=== PATIENT | female | born 1980 | race Caucasian/White ===

== ENCOUNTER → 2018-01-29 10:24 | Outpatient (POV) | payer OTHER, SELFPAY | PROVIDERS: Family Provider Internal Medicine; PCP Internal Medicine; Visit Provider Internal Medicine | DX: Z00.00 Encounter for general adult medical examination without abnormal findings (principal) ==

== ENCOUNTER → 2018-02-21 08:57 | Outpatient (CLI) | payer OTHER, SELFPAY ==
--- NOTE | 2018-02-21 09:26 | XR_ITS ---
XR chest 2V HISTORY: ITS.REASON: WHEEZING, DYSPNEA ON EXERTION ORDERING PHYSICIAN: Neville Tinsley MD PATIENT AGE: 37 years COMPARISON: 04/28/2016 FINDINGS: The cardiomediastinal silhouette and pulmonary vascularity are within normal limits. The lungs are clear without infiltrates, suspicious nodules, or pleural effusions. No acute bony abnormalities. IMPRESSION: Negative chest, no acute finding
[2018-02-21 10:30] VITALS: PULSE 95
[2018-02-21 10:45] VITALS: BP 144/105; PULSE 107; RESP 14; O2SAT 96
[2018-02-21 11:05] VITALS: BP 135/96; PULSE 103; RESP 14; O2SAT 98
[2018-02-21 11:28] LABS: Basophils # 0.1 K/mm3 (0-0.2); Basophils % 0.4 % (0.1-2.0); Eosinophils # 0.2 K/mm3 (0.0-0.4); Eosinophils % 1.1 % (0.1-12.0); Hematocrit 54.8 % (37.0-47.0); Hemoglobin 17.4 g/dL (12.2-16.2); Lymphocytes # 3.6 K/mm3 (0.7-4.5); Lymphocytes % 24.6 K/mm3 (10-50); Mean Corpuscular HGB Conc 31.7 g/dL (31.8-35.4); Mean Corpuscular Hemoglobin 27.8 pg (27.0-31.2); Mean Corpuscular Volume 87.5 fl (81-99); Mean Platelet Volume 7.4 fl (7.4-10.4); Monocytes # 1.2 K/mm3 (0.1-1.0); Monocytes % 8.3 % (1.7-9.3); Neutrophils # 9.4 K/mm3 (1.8-7.8); Neutrophils % 65.5 % (37.0-80.0); Platelet Count 297 K/mm3 (142-424); Red Blood Count 6.27 M/mm3 (4.20-5.40); Red Cell Distribution Width 12.8 % (11.5-17.5); White Blood Count 14.4 K/mm3 (4.8-10.8)
[2018-02-21 12:37] LABS: Alanine Aminotransferase 71 U/L (12-78); Albumin Level 3.9 gm/dL (3.4-5.0); Alkaline Phosphatase 103 U/L (46-116); Anion Gap 15.4 mEq/L (5-15); Aspartate Amino Transferase 37 U/L (15-37); Bilirubin,Total 0.8 mg/dL (0.2-1.0); Blood Urea Nitrogen 11 mg/dL (7-18); Calcium 9.5 mg/dL (8.5-10.1); Carbon Dioxide 32 mmol/L (21.0-32.0); Chloride 97 mmol/L (98-107); Creatinine,Serum 0.74 mg/dL (0.55-1.02); Estimated Glomerular Filt Rate 87 ml/min (>60); GFR (African American) 106 ML/MIN (>60); Globulin 4.1 gm/dl (1.3-3.2); Glucose 81 mg/dL (74-106); Potassium 3.4 mmoL/L (3.5-5.1); Sodium 141 mmol/L (136-145)
[2018-02-24 18:29] LABS: Immunoglobulin E, Total 38 IU/mL (0-100)
== END ==
PROVIDERS: Family Provider Internal Medicine; PCP Internal Medicine; Visit Provider Internal Medicine
DX: R06.09 Other forms of dyspnea (principal); G47.19 Other hypersomnia; R06.2 Wheezing
CPT/HCPCS: 36415; 71046; 80053; 82785; 85025; 94060; 94618; 94640; 94727; 94729

== ENCOUNTER → 2018-04-01 10:05 | Outpatient (CLI) | payer OTHER, SELFPAY ==
--- NOTE | 2018-04-01 | CA_ITS ---
PROCEDURE: 2-D M-mode and color Doppler study INDICATIONS FOR THE TEST: Chest pain COPD Heart Murmur Tobacco Smoking+ Palpitations Fatigue+ Syncope Edema+ Hypertension+Diabetes Mellitus Rheumatic Fever SOB+WHITING+Obesity+Hyperlipidemia Family History HD+ Additional History asthma PATIENT INFORMATION HEIGHT: 66 WEIGHT: 253 GENDER: Female B/P: 122/90 2-D/M-MODE INTERPRETATION: 2-D MEASUREMENTS OBSERVED VALUES IN CMS Right Ventricular Dimension (RVDd) 2.5 Interventricular Septum (Thickness)(IVsd) 0.9 Left Ventricular Internal Dimensions(LVIDd) 4.5 Left Ventricular Posterior Wall (Thickness)(LVPWd) 0.9 Aortic Root 3.0 Aortic Cusp Separation 2.2 Left Atrial Dimensions (LAD) 3.3 2D 1. Left atrium is normal size, left ventricle is normal size, there is no concentric left ventricular hypertrophy, visually estimated ejection fraction of 55% with no obvious regional wall motion abnormality. 2. The right atrium and right ventricle are normal size and contractility. 3. The aortic, mitral and tricuspid valvular grossly normal. 4. The pulmonic valve is poorly visualized. 5. No significant pericardial effusion noted. DOPPLER INTERROGATION: Doppler interrogation of the aortic, mitral and tricuspid valves presence of mild mitral and tricuspid regurgitation, tricuspid and jet velocity insufficient for calculation of the right ventricular systolic pressure, diastolic parameters are within normal range. CONCLUSION: 1. Normal left ventricular size, preserved left ventricular systolic function, visually estimated ejection fraction 55% with no obvious regional wall motion abnormality, diastolic parameters are within normal range. 2. Mild mitral and tricuspid regurgitation 3. No significant pericardial effusion noted.
== END ==
PROVIDERS: Family Provider Internal Medicine; PCP Internal Medicine; Visit Provider Internal Medicine
DX: R00.0 Tachycardia, unspecified (principal); R06.09 Other forms of dyspnea; I10 Essential (primary) hypertension
CPT/HCPCS: 93306

== ENCOUNTER → 2018-10-22 15:34 | Outpatient (CLI) | payer OTHER, SELFPAY ==
--- NOTE | 2018-10-22 | XR_ITS ---
XR chest 2V HISTORY: ITS.REASON: RT CHEST PAIN,ASTHMA ORDERING PHYSICIAN: Geovanny Lincoln PATIENT AGE: 38 years COMPARISON: 02/21/2018 FINDINGS: The cardiomediastinal silhouette and pulmonary vascularity are within normal limits. The lungs are clear without infiltrates, suspicious nodules, or pleural effusions. No acute bony abnormalities. IMPRESSION: No change with no acute finding
== END ==
PROVIDERS: PCP Internal Medicine; Visit Provider Internal Medicine
DX: R07.9 Chest pain, unspecified (principal); J45.909 Unspecified asthma, uncomplicated
CPT/HCPCS: 71046

== ENCOUNTER → 2019-03-04 07:58 | Outpatient (CLI) | payer OTHER, SELFPAY ==
--- NOTE | 2019-03-04 08:02 | CT_ITS ---
CT head/brain wo con HISTORY: ITS.REASON: RT EYE BLURRED VISION, HEADACHES ORDERING PHYSICIAN: Geovanny Lincoln PATIENT AGE: 38 years COMPARISON: None TECHNIQUE: Axial images were obtained. Brain and bone windows reviewed. All CT scans at the facility use one or more dose reduction, viz: automated exposure control, ma/kV adjustment per patient size (including targeted exams where dose is matched to indication, i.e. head), or iterative reconstruction technique. FINDINGS: No midline shift, mass effect, intracranial hemorrhage, hydrocephalus, or extra-axial fluid collection is evident. The calvarium has an unremarkable appearance. No mastoid effusion. No sinus air-fluid levels.. IMPRESSION: Negative CT head without contrast. No acute finding
--- NOTE | 2019-03-04 08:19 | CI_ITS ---
Cerebrovascular Exam Indications: Headache 780.4. Blurred vision. IMPRESSIONS 1. The bilateral internal carotid arteries reveal no evidence of plaque or stenosis. 2. The bilateral common and external carotid arteries reveal no significant stenosis. 3. The bilateral vertebral arteries are patent with normal antegrade flow. History: Risk factors: Current tobacco use. Hypertension. Carotid duplex study. Complete study and Doppler flow study including spectral analysis, color and jo scale imaging. Height: Height: 165.1cm. Height: 65in. Weight: Weight: 106.6kg. Weight: 234.5lb. Body mass index: BMI: 39.1kg/m^2. Body surface area: BSA: 2.26m^2. Location: Vascular laboratory. Patient status: Outpatient. Tables: Arterial flow: + +--------+--------+ Location V sys V ed + +--------+--------+ Right CCA - proximal 86.4cm/s 27.5cm/s + +--------+--------+ Right CCA - distal 71.5cm/s 25.9cm/s + +--------+--------+ Right ECA 123cm/s 31.1cm/s + +--------+--------+ Right ICA - proximal 52.3cm/s 19.6cm/s + +--------+--------+ Right ICA - mid 62.4cm/s 33.3cm/s + +--------+--------+ Right ICA - distal 72.4cm/s 30.7cm/s + +--------+--------+ Right vertebral 22.7cm/s 11.8cm/s + +--------+--------+ Left CCA - proximal 68.1cm/s 26.2cm/s + +--------+--------+ Left CCA - distal 63.9cm/s 25.4cm/s + +--------+--------+ Left ECA 127cm/s 25.7cm/s + +--------+--------+ Left ICA - proximal 59.8cm/s 23.9cm/s + +--------+--------+ Left ICA - mid 66.7cm/s 25cm/s + +--------+--------+ Left ICA - distal 68.6cm/s 31.1cm/s + +--------+--------+ Left vertebral 34.6cm/s 12.5cm/s + +--------+--------+ Velocity ratios: + + + + + + Right, V sys Right, V ed Left, V sys Left, V ed + + + + + + Max ICA/dist CCA 1.01 1.29 1.07 1.22 + + + + + + (Report amended ) Electronically signed by: Devyn Martínez [id number]
== END ==
PROVIDERS: PCP Internal Medicine; Visit Provider Internal Medicine
DX: R51 Headache (principal); H53.8 Other visual disturbances
CPT/HCPCS: 70450; 93880

== ENCOUNTER 2019-12-18 14:03 | Emergency (ER) | payer BC, SELFPAY ==
[2019-12-18 14:13] VITALS: BP 151/98; PULSE 123; RESP 20; TEMP 36.8; O2SAT 99; BMI 34.7
--- NOTE | 2019-12-18 14:29 | HMH.COUGH ---
Cough Clinic HPI - History of Present Illness Complaint:: Cough HPI:: Presents with a 2-week history of cough and drainage. No fever or sore throat. She has a history of seasonal allergies and asthma. She uses albuterol inhaler as needed. No known exposure to coronavirus positive patient. Home Medications: Home Medications Medication Instructions Recorded Confirmed Type albuterol sulfate 90 mcg/actuation 2 puff INHALATION Q6H PRN 7 Days 05/28/19 12/18/19 Rx aerosol inhaler #6.7 g Amoxicillin/Potassium Clav 1 tab PO Q12H #20 tab 12/18/19 Rx [Augmentin 875-125 Tablet] methylPREDNISolone [Medrol 4mg 4 mg PO DIRECTED #21 tab 12/18/19 Rx tab] Allergies/Adverse Reactions: Allergies Allergy/AdvReac Type Severity Reaction Status Date / Time cephalexin [From Keflex] Allergy Mild Verified 12/18/19 14:12 Chlorpheniramine Allergy Intermediate RASH Uncoded 10/28/17 12:14 From Cephalexin Monohydrate Allergy Intermediate I-HIVES/ADALID Uncoded 10/28/17 12:14 H From Pseudoephedrine HCl Allergy Intermediate I-RASH Uncoded 10/28/17 12:14 RU-TUSS Allergy Intermediate I-RASH Uncoded 10/28/17 12:14 Cough Clinic Triage - Symptoms Fever History: No Chills: No Myalgia: No Nasal Drainage: No Sore Throat: No Productive Cough: No Non-productive Cough: Yes Ear or Sinus Pain: No Joint Pain: No Chest Pain: No Rash: No Shortness of Breath: Yes Nausea or Vomitting: No Headache: No Abdominal Pain: No Diarrhea: No - Exposure History Foreign Travel: No Direct Contact with COVID-19 Patient: No - Risk Factors Greater than 60 Years Old: No COPD: No Diabetes: No Heart Disease: Yes Home Oxygen Use: No Chronic Renal Disease: No Chronic Liver Disease: No Neurologic/Neurodevelopmental/intellectual disability: No Other Chronic Diseases: No If Female, currently : No Current Smoker: Yes Former Smoker: No Cough Clinic History Medical History: Reports:: Asthma, Hypertension Other Surgeries: Yes: , Other Amputation: No - Social History Smoking Status: Current every day smoker Tobacco Type: cigarettes # Packs/Day (cigarettes): 1 #Yrs smoked (if former smoker): 15 Alcohol Intake: never Substance Use Type: denies use Occupational Status: employed Family Hx:: No significant family history - Constitutional Constitutional: Denies body ache, Denies chills, Denies fever(s) - Eyes Eyes: Denies eye discharge, Denies irritation - ENT Ears, Nose, Mouth, and Throat: Reports as per HPI - Cardiovascular Cardiovascular: Denies chest pain with activity, Denies dyspnea - Respiratory Respiratory: Yes cough Cough Clinic Exam - General General appearance: in no apparent distress - Eye Eye exam: Absent: scleral icterus, conjunctival injection - ENT ENT exam: Present: mucous membranes moist, other (post nasal drainage) - Neck Neck exam: Absent: tenderness, lymphadenopathy - Respiratory Respiratory exam: Present: normal lung sounds bilaterally - Cardiovascular Cardiovascular exam: Present: normal rhythm, normal heart sounds - Neurological Exam Neurological exam: Present: alert [facility]ough [facility] - Medical Records Medical records reviewed: Yes: I reviewed the patient's medical records. Vital Signs: 12/18/19 14:13 12/18/19 14:56 Temperature 98.2 F 98.2 F Temperature Source Temporal Artery Scan Oral Pulse Rate 123 H Pulse Rate [Left Brachial] 123 H Respiratory Rate 20 20 Blood Pressure 151/98 H Blood Pressure [Left Arm] 151/98 H Blood Pressure Mean [Left Arm] 115 Blood Pressure Source Automatic Cuff Blood Pressure Source [Left Arm] Automatic Cuff Blood Pressure Position Sitting Blood Pressure Position [Left Arm] Sitting 02 Sat by Pulse Oximetry 99 Oxygen Delivery Method Room Air - Lab Data Lab results reviewed: Yes: I reviewed the patient's lab results. Lab Results 12/18/19 14:20: WBC 13.1 H, RBC 4.69, Hgb 15.3, Hct 42.0, MCV 89.7, MCH 32.7 H, MCH
[2019-12-18 14:37] LABS: Hemoglobin 15.3 g/dL (12.2-16.2); Mean Corpuscular HGB Conc 36.5 g/dL (31.8-35.4); Mean Corpuscular Hemoglobin 32.7 pg (27.0-31.2); Mean Corpuscular Volume 89.7 fl (81-99); Platelet Count 254 K/mm3 (142-424); Red Blood Count 4.69 M/mm3 (4.20-5.40); Red Cell Distribution Width 14.1 % (11.5-17.5); White Blood Count 13.1 K/mm3 (4.8-10.8)
[2019-12-18 14:38] LABS: Basophils # 0.1 K/mm3 (0-0.2); Basophils % 0.5 % (0.1-2.0); Eosinophils # 0.1 K/mm3 (0.0-0.4); Eosinophils % 0.4 % (0.1-12.0); Lymphocytes # 2.2 K/mm3 (0.7-4.5); Lymphocytes % 16.7 % (10-50); Monocytes # 0.9 K/mm3 (0.1-1.0); Monocytes % 6.6 % (1.7-9.3); Neutrophils # 9.9 K/mm3 (1.8-7.8); Neutrophils % 75.8 % (37.0-80.0)
[2019-12-18 14:56] VITALS: BP 151/98; PULSE 123; RESP 20; TEMP 36.8; O2SAT 99
== END 2019-12-18 14:56 | disposition home or self-care (01) ==
PROVIDERS: Emergency Provider Family Medicine; PCP Internal Medicine
DX: J01.90 Acute sinusitis, unspecified (principal); J30.2 Other seasonal allergic rhinitis; F17.210 Nicotine dependence, cigarettes, uncomplicated
CPT/HCPCS: 36415; 85025; 99201; 99213

== ENCOUNTER → 2020-07-13 15:18 | Outpatient (CLI) | payer BC, SELFPAY ==
--- NOTE | 2020-07-13 15:28 | MM_ITS ---
PROCEDURE: MM DIG SCREENING MAMM BI W/CAD Digital Breast Tomosynthesis Included CLINICAL INDICATION: SCREENING There is a history of breast cancer in the patient's mother diagnosed after menopause and the patient's maternal grandmother. COMPARISON: This is a baseline screening exam, patient without complaints TECHNIQUE: Standard CC and MLO images and 3D Tomosynthesis was obtained. R2 CAD reviewed. FINDINGS: Scattered fibroglandular densities are seen in both breast on a background of primarily fatty breast parenchyma. There are couple of areas of asymmetric glandular elements in each breast. There is no suspicious lesion and no suspicious microcalcifications. IMPRESSION: Fibrofatty parenchyma with no suspicious lesions seen BI-RAD Category: 1 Negative FOLLOW-UP: 1YR 1 Year Follow-up (A letter has been sent to the patient regarding results of the study.) Dictated by: Dr. Randy Vuong MD 07/16/2020 13:00 Dr. Randy Vuong MD in [place] 07/16/2020 13:00
== END ==
PROVIDERS: PCP Internal Medicine; Visit Provider Internal Medicine
DX: Z12.31 Encounter for screening mammogram for malignant neoplasm of breast (principal)
CPT/HCPCS: 77063; 77067

== ENCOUNTER → 2020-12-01 10:38 | Outpatient (CLI) | payer BC, SELFPAY ==
--- NOTE | 2020-12-01 10:43 | XR_ITS ---
PROCEDURE: XR CHEST 2V CLINICAL HISTORY: SOA, ASTHMA COMPARISON: CR CXR CHEST(2 VIEWS-NOT PORTABLE) from 04/28/2016 CR CXR2V XR chest 2V from 02/21/2018 CR CXR2V XR chest 2V from 10/22/2018 FINDINGS: The cardiomediastinal silhouette and pulmonary vascularity are within normal limits. There is mild pleural thickening along the mid aspect of the left hemithorax. There does appear to be a minimally displaced fracture of the left 6th rib laterally and a nondisplaced fracture of the left 5th rib. These are not readily apparent on 10/22/2018. No evidence of pneumothorax. The remaining lungs are clear. No acute bony abnormalities. IMPRESSION: Left 5th and 6th rib fractures with mild underlying pleural thickening Dictated by: Devyn Martínez MD 12/01/2020 11:45 Devyn Martínez MD in [place] 12/01/2020 11:45
[2020-12-01 11:20] LABS: Basophils # 0.1 K/mm3 (0-0.2); Basophils % 0.7 % (0.1-2.0); Eosinophils # 0.4 K/mm3 (0.0-0.4); Eosinophils % 2.7 % (0.1-12.0); Hemoglobin 16.6 g/dL (12.2-16.2); Lymphocytes # 2.9 K/mm3 (0.7-4.5); Lymphocytes % 20.7 % (10-50); Mean Corpuscular HGB Conc 33.3 g/dL (31.8-35.4); Mean Corpuscular Hemoglobin 29.7 pg (27.0-31.2); Mean Corpuscular Volume 89.2 fl (81-99); Mean Platelet Volume 7.2 fl (7.4-10.4); Neutrophils # 9.7 K/mm3 (1.8-7.8); Neutrophils % 69.1 % (37.0-80.0); Platelet Count 229 K/mm3 (142-424); Red Blood Count 5.61 M/mm3 (4.20-5.40); Red Cell Distribution Width 13.9 % (11.5-17.5); White Blood Count 14.1 K/mm3 (4.8-10.8)
[2020-12-01 11:32] LABS: Anion Gap 9.3 mEq/L (5-15); Blood Urea Nitrogen 10 mg/dl (7-17); Calcium 9.3 mg/dl (8.4-10.2); Carbon Dioxide 29 mmol/L (22.0-30.0); Chloride 101 mmol/L (98-107); Estimated Glomerular Filt Rate 110 ml/min (>60); GFR (African American) 133 ML/MIN (>60); Glucose 116 mg/dl (74-100); Potassium 3.3 mmoL/L (3.5-5.1); Sodium 136 mmol/L (136-145)
[2020-12-01 11:37] LABS: D-Dimer 1.13 ug/mL (0.0-0.5)
--- NOTE | 2020-12-01 12:58 | CT_ITS ---
PROCEDURE: CT ANGIO CHEST CLINCIAL INDICATION: SOA Left-sided chest pain, left-sided rib pain COMPARISON: No exams were available for comparison TECHNIQUE: IV Contrast: 70ML Isovue 370 Axial images obtained with sagittal and coronal reformats. All CT scans at the facility use one or more dose reduction, viz: automated exposure control, ma/kV adjustment per patient size (including targeted exams where dose is matched to indication, i.e. head), or iterative reconstruction technique. FINDINGS: HEART AND MEDIASTINAL STRUCTURES: No evidence of pulmonary embolus, aortic aneurysm, or aortic dissection. LUNGS AND PLEURAL SPACES: There are mild atelectatic changes in the lung bases. There is mild bronchial thickening in the right lower lobe. There are few scattered apical blebs. There is evidence of old granulomatous disease. There is opacification of the medial basilar segmental bronchus on the right. No lobar consolidation or collapse. BONY STRUCTURES: Healing fractures present involving the left 5th rib. Age indeterminate fracture involves the left 6th rib laterally. There is some minimal underlying pleural thickening. UPPER ABDOMEN: Fatty liver. Scattered small periportal lymph nodes. ADDITIONAL FINDINGS: No other significant abnormalities. IMPRESSION: 1. No evidence of pulmonary embolus. 2. Minimally offset left 5th and 6th rib fractures with mild pleural thickening. 3. Atelectatic changes. Bronchial thickening is present in the right lower lobe suggesting bronchitis. There is opacification of the medial basilar segmental bronchus on the right and could be related to fluid within the bronchus. Dictated by: Devyn Martínez MD 12/01/2020 14:13 Devyn Martínez MD in [place] 12/01/2020 14:13
== END ==
PROVIDERS: PCP Internal Medicine; Visit Provider Internal Medicine
DX: R06.02 Shortness of breath (principal); R09.1 Pleurisy; J45.909 Unspecified asthma, uncomplicated
CPT/HCPCS: 36415; 71046; 71275; 80048; 85025; 85378; Q9967

== ENCOUNTER 2021-02-19 08:17 | Observation (INO) | payer BC, SELFPAY ==
[2021-02-19] VITALS (21 sets, daily range): BP systolic 91–122; BP diastolic 53–76; PULSE 50–75; RESP 12–18; TEMP 36.3–36.6; O2SAT 93–100; BMI 38.9; BMI 36.2
--- NOTE | 2021-02-19 08:19 | HMH.EDGENADL ---
ED Disposition Clinical Impression: Intractable nausea and vomiting Benign paroxysmal positional vertigo Qualifiers: Laterality: unspecified laterality Qualified Code(s): H81.10 - Benign paroxysmal vertigo, unspecified ear Disposition: Admitted as Observation Condition on Discharge: Fair Referrals: Provider,MD Nolberto [Referring] - Time of Disposition: 15:46 - Critical Care Critical Care Time: No Attestation: On , the high probability of a clinically significant, sudden or life threatening deterioration of the following system(s) required my full and direct attention, intervention and personal management. The time I documented below is in addition to time spent performing reported procedures but includes the following listed in this critical care notation. Medical Decision Making - Medical Records Medical records reviewed: Yes: I reviewed the patient's medical records. - Jeremie Inquiry Pt receiving controlled substance: No Vital Signs: 02/19/21 08:17 02/19/21 08:31 02/19/21 08:45 Temperature 97.4 F L Temperature Source Oral Pulse Rate 66 Pulse Rate [Left Radial] 58 L Respiratory Rate 18 13 12 Blood Pressure 117/67 Blood Pressure [Right Arm] 117/67 Blood Pressure Mean 84 Blood Pressure Mean [Right Arm] 83 Blood Pressure Source [Right Arm] Automatic Cuff Blood Pressure Position [Right Arm] Sitting 02 Sat by Pulse Oximetry 100 Oxygen Delivery Method Room Air 02/19/21 09:00 02/19/21 10:11 02/19/21 11:12 Temperature Temperature Source Pulse Rate 70 72 Pulse Rate [Left Radial] Respiratory Rate 13 13 13 Blood Pressure 101/57 L 122/64 113/59 L Blood Pressure [Right Arm] Blood Pressure Mean 72 71 77 Blood Pressure Mean [Right Arm] Blood Pressure Source [Right Arm] Blood Pressure Position [Right Arm] 02 Sat by Pulse Oximetry 97 95 Oxygen Delivery Method 02/19/21 11:15 02/19/21 11:30 02/19/21 12:00 Temperature Temperature Source Pulse Rate 57 L 57 L 75 Pulse Rate [Left Radial] Respiratory Rate 14 12 14 Blood Pressure 113/59 L 95/58 L 112/69 Blood Pressure [Right Arm] Blood Pressure Mean Blood Pressure Mean [Right Arm] Blood Pressure Source [Right Arm] Blood Pressure Position [Right Arm] 02 Sat by Pulse Oximetry 97 96 93 L Oxygen Delivery Method Room Air 02/19/21 12:30 02/19/21 13:44 Temperature Temperature Source Pulse Rate 64 Pulse Rate [Left Radial] Respiratory Rate 15 18 Blood Pressure 91/53 L 113/76 Blood Pressure [Right Arm] Blood Pressure Mean Blood Pressure Mean [Right Arm] Blood Pressure Source [Right Arm] Blood Pressure Position [Right Arm] 02 Sat by Pulse Oximetry 98 Oxygen Delivery Method Room Air - Lab Data Lab results reviewed: Yes: I reviewed the patient's lab results. Lab Results 02/19/21 08:23: WBC 18.0 H, RBC 5.36, Hgb 16.0, Hct 45.8, MCV 85.5, MCH 29.8, MCHC 34.8, RDW 13.7, Plt Count 322, MPV 7.2 L, Neut % (Auto) 49.4, Lymph % (Auto) 38.8, Price % (Auto) 8.7, Eos % (Auto) 2.2, Baso % (Auto) 0.8, Neut # (Auto) 8.9 H, Lymph # (Auto) 7.0 H, Price # (Auto) 1.6 H, Eos # (Auto) 0.4, Baso # (Auto) 0.2, Total Counted 100, Neutrophils % (Manual) 54, Lymphocytes % (Manual) 40, Monocytes % (Manual) 6, Platelet Estimate Normal, RBC Morphology Normal 02/19/21 08:23: Sodium 140, Potassium 2.6 L*, Chloride 100, Carbon Dioxide 32 H, Anion Gap 10.6, BUN 12, Creatinine 0.70, Estimated Creat Clear 165, Estimated GFR 92, Est GFR ( Amer) 111, Glucose 119 H, Calcium 9.2, Total Bilirubin 0.6, AST 42 H, ALT 48, Alkaline Phosphatase 110, Total Protein 7.3, Albumin 3.9, Globulin 3.4 H, Albumin/Globulin Ratio 1.1, HCG, Quant < 2 02/19/21 11:11: Urine Color Yellow, Urine Appearance Clear, Urine pH 7.0, Ur Specific [place] 1.020, Urine Protein Negative, Urine Glucose (UA) Negative, Urine Ketones Negative, Urine Blood Negative, Urine Nitrate Negative, Urine Bilirubin Negative, Urine Urobilinogen 1.0
--- NOTE | 2021-02-19 08:23 | ECG_ITS ---
APPROVED REPORT Exam: Resting ECG HR:60 bpm ECG Measurements Heart Rate 60 AXES IN 168 P 34 QRSd 90 QRS 60 QT 440 T 70 QTc 440 Conclusion Normal sinus rhythm Normal ECG Electronically signed by : Tai Dyer, 02/19/2021 21:28:05
[2021-02-19 08:45] LABS: Chloride 100 mmol/L (98-107); Sodium 140 mmol/L (136-145)
--- NOTE | 2021-02-19 08:46 | CT_ITS ---
PROCEDURE INFORMATION: Exam: CT Head Without Contrast Exam date and time: 02/19/2021 8:46 AM Age: 40 years old Clinical indication: Patient HX: Dizziness with nausea and vomiting; Additional info: Dizziness, fall TECHNIQUE: Imaging protocol: Computed tomography of the head without contrast. Radiation optimization: All CT scans at this facility use at least one of these dose optimization techniques: automated exposure control; mA and/or kV adjustment per patient size (includes targeted exams where dose is matched to clinical indication); or iterative reconstruction. COMPARISON: HEADWO CT head/brain wo con 03/04/2019 8:11 AM FINDINGS: Brain: Normal. No hemorrhage. Unremarkable white matter. No mass effect. Cerebral ventricles: No ventriculomegaly. Paranasal sinuses: Visualized sinuses are unremarkable. No fluid levels. Mastoid air cells: Visualized mastoid air cells are well aerated. Bones/joints: Unremarkable. No acute fracture. Soft tissues: Unremarkable. IMPRESSION: No acute intracranial abnormality.
[2021-02-19 08:48] LABS: Alanine Aminotransferase 48 U/L (12-78); Albumin Level 3.9 g/dl (3.5-5.0); Albumin/Globulin Ratio 1.1 (1.1-1.8); Alkaline Phosphatase 110 U/L (38-126); Aspartate Amino Transferase 42 U/L (14-36); Basophils # 0.2 K/mm3 (0-0.2); Basophils % 0.8 % (0.1-2.0); Bilirubin,Total 0.6 mg/dl (0.2-1.3); Blood Urea Nitrogen 12 mg/dl (7-17); Carbon Dioxide 32 mmol/L (22.0-30.0); Creatinine Clearance Estimated 165 mL/min (50-200); Eosinophils # 0.4 K/mm3 (0.0-0.4); Eosinophils % 2.2 % (0.1-12.0); Estimated Glomerular Filt Rate 92 ml/min (>60); GFR (African American) 111 ML/MIN (>60); Globulin 3.4 g/dL (1.3-3.2); Hematocrit 45.8 % (37.0-47.0); Lymphocytes % 38.8 % (10-50); Mean Corpuscular HGB Conc 34.8 g/dL (31.8-35.4); Mean Corpuscular Hemoglobin 29.8 pg (27.0-31.2); Mean Corpuscular Volume 85.5 fl (81-99); Mean Platelet Volume 7.2 fl (7.4-10.4); Monocytes # 1.6 K/mm3 (0.1-1.0); Monocytes % 8.7 % (1.7-9.3); Neutrophils # 8.9 K/mm3 (1.8-7.8); Neutrophils % 49.4 % (37.0-80.0); Platelet Count 322 K/mm3 (142-424); Red Blood Count 5.36 M/mm3 (4.20-5.40); Red Cell Distribution Width 13.7 % (11.5-17.5); Total Protein,Serum 7.3 g/dl (6.3-8.2)
[2021-02-19 08:49] LABS: Calcium 9.2 mg/dl (8.4-10.2); Glucose 119 mg/dl (74-100)
[2021-02-19 08:51] LABS: Potassium 2.6 mmoL/L (3.5-5.1)
--- NOTE | 2021-02-19 08:51 | PC.NURSE ---
Md aware of potassium of 2.6
[2021-02-19 08:53] LABS: MANUAL DIFFERENTIAL MANUAL DIFFERENTIAL (MANUAL DIFF)
[2021-02-19 09:06] LABS: HCG,Quantitative < 2 mIU/ml (0-5.42)
[2021-02-19 09:11] LABS: Lymphocytes % 40 % (10-50); Monocytes % 6 % (2-9); Neutrophils % 54 % (42-76); Platelet Estimate Normal; RBC Morphology Normal; Total Cells Counted 100
--- NOTE | 2021-02-19 09:16 | PC.NURSE ---
pt to radiology
--- NOTE | 2021-02-19 09:59 | XR_ITS ---
PROCEDURE INFORMATION: Exam: XR Chest Exam date and time: 02/19/2021 9:59 AM Age: 40 years old Clinical indication: Abnormal findings; Other: Leukocytosis TECHNIQUE: Imaging protocol: XR of the chest. Views: 1 view. COMPARISON: CR XR CHEST 2V 12/01/2020 10:46 AM FINDINGS: Lungs: Unremarkable. No consolidation. Pleural spaces: Unremarkable. No pleural effusion. No pneumothorax. Heart/Mediastinum: Unremarkable. No cardiomegaly. Bones/joints: Unremarkable. IMPRESSION: No acute findings.
--- NOTE | 2021-02-19 10:12 | CT_ITS ---
PROCEDURE INFORMATION: Exam: CT Angiography Neck With Contrast Exam date and time: 02/19/2021 10:12 AM Age: 40 years old Clinical indication: Dizziness and giddiness TECHNIQUE: Imaging protocol: Computed tomography angiography of the neck with contrast. 3D rendering (Not supervised by radiologist): MIP and/or 3D reconstructed images were created by the technologist. Radiation optimization: All CT scans at this facility use at least one of these dose optimization techniques: automated exposure control; mA and/or kV adjustment per patient size (includes targeted exams where dose is matched to clinical indication); or iterative reconstruction. Contrast material: ISOVUE; Contrast volume: 100 ml; Contrast route: INTRAVENOUS (IV); COMPARISON: US CA carotid duplex BI 03/04/2019 8:26 AM FINDINGS: Right common carotid artery: No stenosis. No dissection or occlusion. Right internal carotid artery: No stenosis of the extracranial segment. No dissection or occlusion. Right external carotid artery: No occlusion or stenosis of the origin. Left common carotid artery: Small plaques at the left carotid bulb. Minimal narrowing series 2, image 190, less than 10%. No dissection or occlusion. Left internal carotid artery: No stenosis of the extracranial segment. No dissection or occlusion. Left external carotid artery: No occlusion or high-grade stenosis of the origin. Small plaques at the origin. Right vertebral artery: No stenosis. No dissection or occlusion. Left vertebral artery: No stenosis. No dissection or occlusion. Thyroid: Heterogeneous 1.6 cm length right lower pole thyroid nodule with hypo attenuation/hypoenhancement, and punctate densities which could be calcifications versus densely enhancing blood vessels. See coronal series 602, images 59-61. Dental: Prominent dental-periodontal disease; there are multiple missing teeth, multiple dental caries, and there are apical radiolucencies greatest in the posterior the lower left molar which could be due to apical dental abscess, see sagittal series 601, image 82. Soft tissues: There are no soft tissue masses or fluid collections. Bones/joints: No acute fracture. Cervical spine degenerative changes with disc disease and spondylosis greatest C5-C6. Lungs: There is a peripheral rounded ground-glass opacity in the anterior right upper lobe series 2, image 42, which is new compared with report from previous CTA chest of 12/01/2020, those images are not available to compare. There are patchy cystic emphysematous changes in the visualized right upper lobe. IMPRESSION: 1. Minimal plaques in the left carotid bulb and external carotid artery, very mild stenosis. 2. No significant carotid or vertebral arterial stenosis, or occlusion in the neck. 3. Incidental rounded ground-glass opacity in the right upper lobe, correlate for pneumonia or edema. 4. Extensive dental-periodontal disease, possible apical dental abscess in the posterior lower left molar. 5. 1.6 cm right thyroid nodule, recommend non emergent follow-up per ACR guidelines below. 6. Cervical spine degenerative changes with disc disease and spondylosis greatest C5-C6, and spinal stenosis. COMMENTS: Consistent with the [employer]'s Incidental Findings Committee white paper (J Am Reza Radiol 2015): In patients aged 35 years and older with an incidental thyroid nodule equal to or greater than 1.[address], MRI or extrathyroidal US, further evaluation with dedicated thyroid US is recommended for patients with normal life expectancy and without comorbidities. For smaller nodules without suspicious fe
--- NOTE | 2021-02-19 10:12 | CT_ITS ---
PROCEDURE INFORMATION: Exam: CT Angiography Head With Contrast, Arteriography Exam date and time: 02/19/2021 10:12 AM Age: 40 years old Clinical indication: Dizziness and giddiness TECHNIQUE: Imaging protocol: Computed tomography angiography of the head with contrast. Exam focused on the arteries. 3D rendering (Not supervised by radiologist): MIP and/or 3D reconstructed images were created by the technologist. Radiation optimization: All CT scans at this facility use at least one of these dose optimization techniques: automated exposure control; mA and/or kV adjustment per patient size (includes targeted exams where dose is matched to clinical indication); or iterative reconstruction. Contrast material: ISOVUE; Contrast volume: 100 ml; Contrast route: INTRAVENOUS (IV); COMPARISON: CT HEAD/BRAIN WO CON 02/19/2021 9:19 AM FINDINGS: ANTERIOR CIRCULATION: Right internal carotid artery: Unremarkable. Intracranial segment is patent with no significant stenosis. No aneurysm. Right middle cerebral artery: Unremarkable. No occlusion or significant stenosis. No aneurysm. Right anterior cerebral artery: Unremarkable. No occlusion or significant stenosis. No aneurysm. Left internal carotid artery: Unremarkable. Intracranial segment is patent with no significant stenosis. No aneurysm. Left middle cerebral artery: Unremarkable. No occlusion or significant stenosis. No aneurysm. Left anterior cerebral artery: Unremarkable. No occlusion or significant stenosis. No aneurysm. POSTERIOR CIRCULATION: Right vertebral artery: Unremarkable. No occlusion or significant stenosis. No aneurysm. Left vertebral artery: Unremarkable. No occlusion or significant stenosis. No aneurysm. Basilar artery: Unremarkable. No occlusion or significant stenosis. No aneurysm. Right posterior cerebral artery: Unremarkable. No occlusion or significant stenosis. No aneurysm. Left posterior cerebral artery: Unremarkable. No occlusion or significant stenosis. No aneurysm. Brain: No definite mass, mass effect, or midline shift. Cerebral ventricles: Lateral ventricles appear at upper limits normal. No significant hydrocephalus. Bones/joints: No acute skull fracture. No lytic lesions. Soft tissues: There are no soft tissue masses or fluid collections. Paranasal sinuses: No acute findings in the visualized sinuses. No significant sinus opacification or air-fluid levels. Mild bilateral ethmoid mucosal thickening. IMPRESSION: No large vessel stenosis or occlusion.
--- NOTE | 2021-02-19 10:16 | PC.NURSE ---
X-ray at bedside.
[2021-02-19 10:24] LABS: Anion Gap 10.6 mEq/L (5-15)
--- NOTE | 2021-02-19 10:27 | PC.NURSE ---
pt going to CT
--- NOTE | 2021-02-19 10:38 | PC.NURSE ---
Final [facility] chest Xray reading (print out) given to MD along with CT w/o contrast.
--- NOTE | 2021-02-19 11:02 | PC.NURSE ---
pt returning from rad
[2021-02-19 11:17] LABS: Microscopic, Urine URINE MICROSCOPIC (MICROSCOPIC)
[2021-02-19 11:19] LABS: Appearance,Urine CLEAR (Clear); Bilirubin,Urine Negative (Negative); Blood, Urine Negative (Negative); Color,Urine YELLOW (Yellow); Glucose,Urine (UA) Negative (Negative); Ketones,Urine Negative (Negative); Leukocyte Esterase,Urine Negative (Negative); Nitrate,Urine Negative (Negative); Protein,Urine Negative (Negative)
[2021-02-19 11:24] LABS: Amorphous Sediment,Urine 1+ /lpf
[2021-02-19 11:31] LABS: Benzodiazepines Screen,Urine Negative ng/ml (<200)
[2021-02-19 11:32] LABS: Amphetamine/Metha Screen,Urine Negative ng/ml (<1000)
[2021-02-19 11:33] LABS: Barbiturates Screen,Urine Negative ng/ml (<200); Methadone Screen,Urine Negative ng/ml (<300)
[2021-02-19 11:34] LABS: Cannabinoid Screen,Urine Negative ng/ml (<50)
[2021-02-19 11:35] LABS: Cocaine Screen,Urine Negative ng/ml (<300); Opiate Screen,Urine Negative ng/ml (<300)
[2021-02-19 11:36] LABS: Phencyclidine Screen,Urine Negative ng/ml (<25)
--- NOTE | 2021-02-19 12:17 | PC.NURSE ---
Radiology called per MD request to find out where they are in the process of the final read for CT w/ contrast as it has already been over an hour. Chantel called back and advised they reached out to [facility] & was advised they could not provide an estimated time.
--- NOTE | 2021-02-19 12:35 | PC.NURSE ---
Final CT angio read received from [facility] and given to provider.
[2021-02-19 16:17] LABS: Coronavirus 19, PCR Not Detected (NotDetected); Influenza A, PCR Not Detected (NotDetected); Influenza B, PCR Not Detected (NotDetected)
--- NOTE | 2021-02-19 16:58 | PC.NURSE ---
Report called to Kia HAMMONDS
--- NOTE | 2021-02-19 17:07 | PC.NURSE ---
Pt arrived to the floor at this time
--- NOTE | 2021-02-19 18:44 | HMH.HP ---
*Admission Date: 02/19/21 *Chief complaint: Dizziness *History of present illness: This 40-year-old white female awoke this morning with dizziness. With any movement the room spins and she has had nausea and some vomiting. She presented in the emergency room and was treated with multiple medications without relief of her symptoms. She received IV Zofran, IV diazepam, IV metoclopramide IV Haldol plus a scopolamine patch. She received IV fluids. CT head scan was negative. Bradycardia was noted in the emergency room. The patient has been taking Bystolic 10 mg for several months due to tachycardia. Bradycardia is NOT usual for her. She does not have a prior history of vertigo. She also takes lorazepam. Recently she has been treated with Augmentin and prednisone for bronchitis. She has a history of asthmatic bronchitis and is a smoker. She was admitted for further evaluation and treatment. The following is the narrative from the emergency room: 40yo F past medical history of hypertension presents to emergency department secondary to dizziness. Patient reports she felt well when she went to bed but woke up with severe dizziness. She reports she has fallen because of her dizziness this morning. Her symptoms are, however not completely resolved, and her eyes are closed. Opening her eyes makes symptoms worse. She complains of nausea with vomiting. She denies previous episodes similar to this. Patient notes her mother suffers from vertigo and the patient took 25 mg of meclizine prior to arrival. She denies any headache. She denies any focal deficit. [facility] History Medical History: Reports:: Asthma, Hyperlipidemia, Hypertension, Supraventricular Tachycardia Denies:: Diabetes Mellitus Type 1, Diabetes Mellitus Type 2, Transient Ischemic Attacks (TIA) *Have you ever received a pneumonia vaccine?: No *Have you received a flu vaccine this season?: No Other Medical History: Denies: Sinus Problems, Thyroid Disease Other Surgeries: Yes: (Has a 13-year-old child), Other Amputation: No - *Social History Smoking Status: Current every day smoker Tobacco Type: cigarettes # Packs/Day (cigarettes): 1 #Yrs smoked (if former smoker): 15 Alcohol Intake: never Substance Use Type: denies use *Occupational Status:: employed *Travel in the last 8 weeks: None Family Hx:: no No significant family history Comment: Her father is 78 years old and has Parkinson's disease. Her mother has had problems with a right knee replacement with subsequent infection. The knee replacement was removed and a spacer was placed. : 1 Para: 1 Review of Systems - Constitutional Denies anorexia, Denies chills, Denies weight loss - Eyes Denies change in vision - ENT Reports dizziness, Denies abnormal hearing - *Cardiovascular Reports fast heart rate, Denies chest pain, Denies irregular heart rhythm - *Respiratory Reports chest congestion, Reports wheezing - *Gastrointestinal Denies abdominal pain, Denies change in bowel habits - *Genitourinary Denies difficulty urinating, Denies vaginal discharge - *Musculoskeletal Reports joint pain, Denies abnormal walking - Integumentary/Breasts Denies bleeding lesions - *Neurologic Reports dizziness, Denies fainting - Psychiatric Denies confusion, Denies depression - Endocrine Denies excessive sweating, Denies flushing Meds Home Medications Medication Instructions Recorded Confirmed Type Albuterol Sulfate [Proair 2 puff IH Q4-6H PRN 02/19/21 02/19/21 History Respiclick] Buprenorphine HCl/Naloxone HCl 1 each SL DAILY 02/19/21 02/19/21 History [Buprenorphin-Naloxon 8-2 mg Sl] LORazepam [Lorazepam 0.5mg Tablet] 0.5 mg PO TID PRN 02/19/21 02/19/21 History Triamterene/Hydrochlorothiazid 1 each PO DAILY 02/19/21 02/19/21 History [Triamterene-Hctz 37.5-25 mg Tb] Allergies Allergy/AdvReac Type Severity Reaction Status Date / Time cephalexin [From Keflex] Allergy Mild Verified 02/19/21 18:07
[2021-02-20] VITALS (9 sets, daily range): BP systolic 91–127; BP diastolic 57–72; PULSE 50–80; RESP 16–18; TEMP 36.4–36.8; O2SAT 92–98; BMI 34.9
--- NOTE | 2021-02-20 03:09 | PC.NURSE ---
Pt is awake in bed at this time. Denies any N/V or discomfort at this time. VSS. Pt was noted early in shift to have wheezing t/o lung andrade after vomiting. Duonebs Q6 was ordered. RT was notified. RT stated that she declined 0000 Tx, but will back to give 0600 Tx. No other concerns at this time. Will continue to monitor.
[2021-02-20 07:06] LABS: Basophils # 0.1 K/mm3 (0-0.2); Basophils % 0.5 % (0.1-2.0); Eosinophils # 0.2 K/mm3 (0.0-0.4); Eosinophils % 2.3 % (0.1-12.0); Lymphocytes % 30.1 % (10-50); Mean Corpuscular HGB Conc 34.1 g/dL (31.8-35.4); Mean Corpuscular Hemoglobin 29.6 pg (27.0-31.2); Mean Corpuscular Volume 86.8 fl (81-99); Mean Platelet Volume 7.6 fl (7.4-10.4); Monocytes # 0.6 K/mm3 (0.1-1.0); Monocytes % 6.3 % (1.7-9.3); Neutrophils # 6.1 K/mm3 (1.8-7.8); Neutrophils % 60.9 % (37.0-80.0); Platelet Count 216 K/mm3 (142-424); Red Blood Count 4.72 M/mm3 (4.20-5.40); Red Cell Distribution Width 13.9 % (11.5-17.5); White Blood Count 10.1 K/mm3 (4.8-10.8)
[2021-02-20 07:16] LABS: Chloride 103 mmol/L (98-107); Potassium 3.2 mmoL/L (3.5-5.1); Sodium 136 mmol/L (136-145)
[2021-02-20 07:19] LABS: Anion Gap 7.2 mEq/L (5-15); Blood Urea Nitrogen 9 mg/dl (7-17); Calcium 8.3 mg/dl (8.4-10.2); Carbon Dioxide 29 mmol/L (22.0-30.0); Creatinine Clearance Estimated 184 mL/min (50-200); Estimated Glomerular Filt Rate 110 ml/min (>60); GFR (African American) 133 ML/MIN (>60); Glucose 95 mg/dl (74-100)
--- NOTE | 2021-02-20 09:21 | HMH.ACPN2 ---
Internal Medicine - PN: Subj *Date: 02/20/21 *Time: 09:21 Interval history: She feels some better. Her potassium has come up to 3.2. I performed the Deya maneuver on her this morning. Medications will be reviewed and adjusted accordingly. She is not taking much by mouth yet. Exam Vital signs and Labs for Last 24 Hours: Temp Pulse Resp BP Pulse Ox 98.3 F 66 17 113/57 L 92 L 02/20/21 07:44 02/20/21 07:44 02/20/21 07:44 02/20/21 07:44 02/20/21 07:44 Laboratory Results - last 24 hr 02/19/21 08:23: Anion Gap 10.6 02/19/21 11:11: Urine Color Yellow, Urine Appearance Clear, Urine pH 7.0, Ur Specific [place] 1.020, Urine Protein Negative, Urine Glucose (UA) Negative, Urine Ketones Negative, Urine Blood Negative, Urine Nitrate Negative, Urine Bilirubin Negative, Urine Urobilinogen 1.0, Ur Leukocyte Esterase Negative, Urine RBC None, Urine WBC None, Ur Squamous Epith Cells 3-5, Amorphous Sediment 1+, Urine Bacteria None 02/19/21 11:11: Urine Opiates Screen Negative, Urine Methadone Screen Negative, Ur Barbituates Screen Negative, Ur Phencyclidine Scrn Negative, Ur Amphetamines Screen Negative, U Benzodiazepines Scrn Negative, Urine Cocaine Screen Negative, U Marijuana (THC) Screen Negative 02/19/21 16:06: SARS-CoV-2 (PCR) Not detected, Influenza A Untype (PCR) Not detected, Influenza Type B (PCR) Not detected 02/20/21 06:56: WBC 10.1 D, RBC 4.72, Hgb 14.0 D, Hct 41.0, MCV 86.8, MCH 29.6, MCHC 34.1, RDW 13.9, Plt Count 216 D, MPV 7.6, Neut % (Auto) 60.9, Lymph % (Auto) 30.1, [place] % (Auto) 6.3, Eos % (Auto) 2.3, Baso % (Auto) 0.5, Neut # (Auto) 6.1, Lymph # (Auto) 3.0, [place] # (Auto) 0.6, Eos # (Auto) 0.2, Baso # (Auto) 0.1 02/20/21 06:56: Sodium 136, Potassium 3.2 L D, Chloride 103, Carbon Dioxide 29, Anion Gap 7.2, BUN 9, Creatinine 0.60, Estimated Creat Clear 184, Estimated GFR 110, Est GFR ( Amer) 133, Glucose 95 D, Calcium 8.3 L I & O for Last 24 hours: Intake & Output 02/17/21 02/18/21 02/19/21 02/20/21 11:59 11:59 11:59 11:59 Intake Total 1680 / 1680 Output Total 300 / 300 Balance 1380 / 1380 Weight 220 lb 210 lb - Constitutional no acute distress - *Routine HEENT Exam Head: Present: normocephalic Eye: Present: PERRL. Absent: nystagmus (Nystagmus was not elicited during Deya maneuver.) ENT: Present: mucous membranes moist - *Routine Neck Exam Present: supple - Routine Chest/Breast/Axilla Exam Chest wall: Absent: tenderness - *Routine Respiratory Exam Present: CTA bilaterally - *Routine Cardiovascular Exam Present: RRR. Absent: ectopic - *Routine Abdominal Exam Present: soft, obese. Absent: tenderness - *Routine Extremities Exam Absent: edema - *Routine Neurological Exam Present: alert, oriented X3. Absent: altered mental status, nystagmus Assessment and Plan (1) Labyrinthitis, acute Status: Acute Category: Medical Code(s): H83.09 - Labyrinthitis, unspecified ear (2) Intractable nausea and vomiting Status: Acute Category: Medical Code(s): R11.2 - Nausea with vomiting, unspecified (3) Bandemia without diagnosis of specific infection Status: Acute Category: Medical Code(s): D72.825 - Bandemia (4) Bradycardia Status: Acute Category: Medical Code(s): R00.1 - Bradycardia, unspecified (5) Asthmatic bronchitis , chronic Status: Acute Category: Medical Code(s): J44.9 - Chronic obstructive pulmonary disease, unspecified (6) Tobacco use Status: Acute Category: Social Hx Code(s): Z72.0 - Tobacco use - Assessment and plan all Dx Assessment and Plan for all problems:: She has a scopolamine patch in place. I will continue meclizine. Zofran will be used as needed.
--- NOTE | 2021-02-20 10:02 | P.CONPHA_ITS ---
[facility] Pharmacy VTE Monitoring - Patient Demographics Admission date: 02/20/21 Report Date: 02/20/21 Time: 10:02 Allergies/Adverse Reactions: Patient Allergies cephalexin [From Keflex] Allergy (Mild, Verified 02/19/21 18:07) Height: 1.65 m Weight: 95.254 kg Patient Problems: Current Active Problems Intractable nausea and vomiting (Acute) Benign paroxysmal positional vertigo (Acute) Labyrinthitis, acute (Acute) Asthmatic bronchitis , chronic (Acute) Tobacco use (Acute) Bradycardia (Acute) Bandemia without diagnosis of specific infection (Acute) - VTE Risk Labs: VTE Related Lab Results Hgb 14.0 g/dL (12.2-16.2) D 02/20/21 06:56 Hct 41.0 % (37.0-47.0) 02/20/21 06:56 Plt Count 216 K/mm3 (142-424) D 02/20/21 06:56 BUN 9 mg/dl (7-17) 02/20/21 06:56 Creatinine 0.60 mg/dl (0.52-1.04) 02/20/21 06:56 Estimated Creat Clear 184 mL/min (50-200) 02/20/21 06:56 - Prophylaxis Types of VTE Prophylaxis: IPCS Knee High (ICDS ORDERED) Location of Applied Device: Bilateral Lower Extremeties
--- NOTE | 2021-02-20 15:18 | PC.NURSE ---
Pt has been pleasant and cooperative this shift. A&O X4. Pt has complained of pain a couple times today and has received Tylenol per MAR with favorable results. Pt is on room air with sats. >90%. Lungs CTA. No edema noted. Skin is C/D/I. Telemetry reveals SB. Pt ambulates independently and uses the BSC to void clear, yellow urine without issue. No BM thus far today. Appetite is good and pt is tolerating full liquids well. VSS. Call light within reach. Will continue to monitor.
[2021-02-21] VITALS (10 sets, daily range): BP systolic 98–131; BP diastolic 55–71; PULSE 50–84; RESP 16–18; TEMP 36.4–36.8; O2SAT 94–97
--- NOTE | 2021-02-21 03:50 | PC.NURSE ---
Patient was pleasant throughout shift and rested well. no complaints of pain or nausea Did complain of dizziness. Good urine output.. VSS. No further concerns voiced to RN
--- NOTE | 2021-02-21 09:09 | HMH.ACPN2 ---
Internal Medicine - PN: Subj *Date: 02/21/21 *Time: 09:09 Interval history: She feels better. She does not state the dizziness has resolved completely however. She was in bed all day yesterday. She seems to have some edema. Exam Vital signs and Labs for Last 24 Hours: Temp Pulse Resp BP Pulse Ox 98.1 F 52 L 17 121/71 95 02/21/21 08:00 02/21/21 08:00 02/21/21 08:00 02/21/21 08:00 02/21/21 08:00 I & O for Last 24 hours: Intake & Output 02/18/21 02/19/21 02/20/21 02/21/21 11:59 11:59 11:59 11:59 Intake Total 1680 / 1680 2180 / 2180 Output Total 300 / 300 1350 / 1350 Balance 1380 / 1380 830 / 830 Weight 220 lb 210 lb - Constitutional no acute distress - *Routine HEENT Exam Head: Present: normocephalic Eye: Absent: nystagmus ENT: Present: mucous membranes moist - *Routine Respiratory Exam Present: decreased breath sounds - *Routine Cardiovascular Exam Present: RRR - *Routine Abdominal Exam Present: soft, obese - *Routine Extremities Exam Present: edema (1-2+) Assessment and Plan (1) Labyrinthitis, acute Status: Acute Category: Medical Code(s): H83.09 - Labyrinthitis, unspecified ear (2) Intractable nausea and vomiting Status: Acute Category: Medical Code(s): R11.2 - Nausea with vomiting, unspecified (3) Bandemia without diagnosis of specific infection Status: Acute Category: Medical Code(s): D72.825 - Bandemia (4) Bradycardia Status: Acute Category: Medical Code(s): R00.1 - Bradycardia, unspecified (5) Asthmatic bronchitis , chronic Status: Acute Category: Medical Code(s): J44.9 - Chronic obstructive pulmonary disease, unspecified (6) Tobacco use Status: Acute Category: Social Hx Code(s): Z72.0 - Tobacco use - Assessment and plan all Dx Assessment and Plan for all problems:: Lasix 20 mg IV x1. We may be able to discharge her later on today.
[2021-02-21 09:40] LABS: Chloride 103 mmol/L (98-107); Potassium 3.7 mmoL/L (3.5-5.1); Sodium 137 mmol/L (136-145)
[2021-02-21 09:43] LABS: Anion Gap 9.7 mEq/L (5-15); Blood Urea Nitrogen 7 mg/dl (7-17); Calcium 8.5 mg/dl (8.4-10.2); Carbon Dioxide 28 mmol/L (22.0-30.0); Creatinine Clearance Estimated 157 mL/min (50-200); Estimated Glomerular Filt Rate 92 ml/min (>60); GFR (African American) 111 ML/MIN (>60); Glucose 82 mg/dl (74-100)
--- NOTE | 2021-02-21 15:21 | PC.NURSE ---
Pt has rested intermittantly throughout shift with complaints of headache and nausea which was medicated per OCT. Pt has been up to bathroom independently with standby assist r/t dizziness. VSS. Pt has requested something besides tylenol for headache. MD called awaiting further orders.
--- NOTE | 2021-02-21 20:31 | PC.NURSE ---
IV was DC. Education about appt and medications given to pt. Pt left floor at 2031 per wheelchair, accompanied by myself and family.
--- NOTE | 2021-02-21 20:31 | PC.NURSE ---
PT WAS D/C AT 2030
--- NOTE | 2021-02-24 16:50 | HMH.DCSUM ---
General - General Admission date:: 02/19/21 Discharge date: 02/21/21 HPI HPI: This 40-year-old white female awoke this morning with dizziness. With any movement the room spins and she has had nausea and some vomiting. She presented in the emergency room and was treated with multiple medications without relief of her symptoms. She received IV Zofran, IV diazepam, IV metoclopramide IV Haldol plus a scopolamine patch. She received IV fluids. CT head scan was negative. Bradycardia was noted in the emergency room. The patient has been taking Bystolic 10 mg for several months due to tachycardia. Bradycardia is NOT usual for her. She does not have a prior history of vertigo. She also takes lorazepam. Recently she has been treated with Augmentin and prednisone for bronchitis. She has a history of asthmatic bronchitis and is a smoker. She was admitted for further evaluation and treatment. The following is the narrative from the emergency room: 40yo F past medical history of hypertension presents to emergency department secondary to dizziness. Patient reports she felt well when she went to bed but woke up with severe dizziness. She reports she has fallen because of her dizziness this morning. Her symptoms are, however not completely resolved, and her eyes are closed. Opening her eyes makes symptoms worse. She complains of nausea with vomiting. She denies previous episodes similar to this. Patient notes her mother suffers from vertigo and the patient took 25 mg of meclizine prior to arrival. She denies any headache. She denies any focal deficit. 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 Her head CT showed nothing acute. Her chest x-ray showed nothing acute. Her head CTA showed no large vessel stenosis or occlusion. Her neck CTA showed minimal plaques in the left carotid bulb and external carotid artery with mild stenosis. An incidental rounded groundglass opacity was noted in the right upper lobe. There was also a possible dental abscess noted in the posterior left molar. A 1.6 cm right thyroid nodule was seen as well. By 02/20/2021, the patient was feeling better and her potassium improved. Dr. Nunez performed Deya's maneuver on the patient and she had a scopolamine patch in place. She was continued on some meclizine and Zofran as needed. By 02/21/2021, she was better. The dizziness had not completely resolved, but had improved. She did have some swelling and was given a one-time dose of Lasix. She was stable to be discharged home and will follow up with Dr. Lincoln. Objective Vital signs: Temp Pulse Resp BP Pulse Ox 97.8 F 56 L 16 131/64 94 L 02/21/21 20:00 02/21/21 20:00 02/21/21 20:00 02/21/21 20:00 02/21/21 20:00 Narrative: - Constitutional moderate distress Comments: The patient is sleeping on her left side when I enter the room. She is arousable and answers questions though she is obviously groggy. - *Routine HEENT Exam Head: Present: normocephalic Eye: Present: PERRL. Absent: nystagmus (No current nystagmus) ENT: Present: mucous membranes moist - *Routine Neck Exam Absent: JVD, carotid bruit - Routine Chest/Breast/Axilla Exam Chest wall: Absent: tenderness - *Routine Respiratory Exam Present: decreased breath sounds, wheezes - *Routine Cardiovascular Exam Present: bradycardia (52 with some ectopics and variability) - *Routine Abdominal Exam Present: soft, obese. Absent: tenderness - *Routine Rectal Exam Rectal:: deferred - *Routine Genitalia Exam Genitalia:: deferred - *Routine Extremities Exam Present: edema (1+) - *Routine Neurological Exam Present: normal speech. Absent: alert (She was sleeping but is arousable and answers questions.) - Routine Psychiatric Exam Present: unable to assess DS: Diagnosis - Discharge Diagnosis (1) Labyrinthitis, acute Status: Acute (2) Intractable nausea an
== END 2021-02-21 20:31 | disposition home or self-care (01) ==
LOC: ER 15:46 → 2ND 17:53
PROVIDERS: Admitting Provider Family Medicine; Emergency Provider Family Medicine; PCP Internal Medicine; Visit Provider Family Medicine
DX: H81.10 Benign paroxysmal vertigo, unspecified ear (principal); R11.2 Nausea with vomiting, unspecified; F17.210 Nicotine dependence, cigarettes, uncomplicated; J44.9 Chronic obstructive pulmonary disease, unspecified; R00.1 Bradycardia, unspecified; I10 Essential (primary) hypertension
CPT/HCPCS: 36415; 70450; 70496; 70498; 71045; 80048; 80053; 80305; 81001; 84702; 85007; 85025; 93005; 94640; 96365; 96366; 96375; 99284; G0378; J2405; Q9967; U0003

== ENCOUNTER 2021-08-18 14:13 | Emergency (ER) | payer OTHER, SELFPAY ==
[2021-08-18 15:26] VITALS: BP 0/0; PULSE 0; RESP 0; TEMP -17.7; TEMP 0
== END 2021-08-18 15:27 | disposition left against medical advice (07) ==
LOC: UTC 14:15
PROVIDERS: Emergency Provider Nurse Practitioner Family; PCP Internal Medicine
DX: Z53.21 Procedure and treatment not carried out due to patient leaving prior to being seen by health care provider (principal)

== ENCOUNTER → 2021-08-18 17:01 | Outpatient (CLI) | payer OTHER, SELFPAY ==
[2021-08-18 17:26] LABS: Coronavirus 19, PCR Not Detected (NotDetected); Influenza A, PCR Not Detected (NotDetected); Influenza B, PCR Not Detected (NotDetected)
== END ==
PROVIDERS: PCP Internal Medicine; Visit Provider Nurse Practitioner Family
DX: Z20.822 Contact with and (suspected) exposure to COVID-19 (principal)
CPT/HCPCS: C9803; U0003; U0005

== ENCOUNTER → 2021-09-28 16:16 | Outpatient (CLI) | payer OTHER, SELFPAY ==
--- NOTE | 2021-09-28 16:19 | XR_ITS ---
PROCEDURE INFORMATION: Exam: XR Left Foot Complete; Alignment Exam date and time: 09/28/2021 4:19 PM Age: 41 years old Clinical indication: Difficulty in walking; Patient HX: Left foot turns inward when she walks. Weightbearing views for Dr. Amaya. ; Additional info: Pain TECHNIQUE: Imaging protocol: XR Left foot. Views: 3 or more views. COMPARISON: No relevant prior exams. FINDINGS: Bones/joints: Moderate-sized calcaneal spur. The remaining osseous structures are unremarkable. No other fractures. The joint spaces are intact. No dislocations. Soft tissues: Normal. Calcaneal pitch angle: 13 degrees (low: 10-20 degrees = pes planus; medium: 20-30 degrees = normal; high > 30 degrees = pes cavum). IMPRESSION: 1. No fractures or dislocations. 2. Calcaneal spur. 3. Pes planus.
--- NOTE | 2021-09-28 16:19 | XR_ITS ---
PROCEDURE INFORMATION: Exam: XR Right Foot Complete; Alignment Exam date and time: 09/28/2021 4:19 PM Age: 41 years old Clinical indication: Pain; Patient HX: Growth on right foot, weightbearing views for Dr. Amaya. TECHNIQUE: Imaging protocol: XR Right foot. Views: 3 or more views. COMPARISON: No relevant prior exams. FINDINGS: Bones/joints: Moderate-sized calcaneal spur. The remaining osseous structures are unremarkable. No other fractures. The joint spaces are intact. No dislocations. Soft tissues: Normal. Calcaneal pitch angle: 10 degrees (low: 10-20 degrees = pes planus; medium: 20-30 degrees = normal; high > 30 degrees = pes cavum). IMPRESSION: 1. No fractures or dislocations. 2. Moderate size calcaneal spur. 3. Pes planus.
== END ==
PROVIDERS: PCP Internal Medicine; Visit Provider Podiatrist
DX: M79.672 Pain in left foot (principal); M79.671 Pain in right foot
CPT/HCPCS: 73630

== ENCOUNTER → 2021-10-08 11:01 | Outpatient (CLI) | payer OTHER, SELFPAY ==
[2021-10-08 12:47] LABS: Basophils # 0.2 K/mm3 (0-0.2); Basophils % 1.6 % (0.1-2.0); Eosinophils # 0.2 K/mm3 (0.0-0.4); Eosinophils % 1.6 % (0.1-12.0); Hematocrit 50.3 % (37.0-47.0); Hemoglobin 16.2 g/dL (12.2-16.2); Lymphocytes # 3.2 K/mm3 (0.7-4.5); Lymphocytes % 23.8 % (10-50); Mean Corpuscular HGB Conc 32.1 g/dL (31.8-35.4); Mean Corpuscular Volume 93.4 fl (81-99); Mean Platelet Volume 7.6 fl (7.4-10.4); Monocytes % 7.6 % (1.7-9.3); Neutrophils # 8.7 K/mm3 (1.8-7.8); Neutrophils % 65.4 % (37.0-80.0); Platelet Count 280 K/mm3 (142-424); Red Blood Count 5.39 M/mm3 (4.20-5.40); Red Cell Distribution Width 14.4 % (11.5-17.5); White Blood Count 13.3 K/mm3 (4.8-10.8)
[2021-10-08 13:30] LABS: Erythrocyte Sedimentation Rate 26 mm/hr (0-20)
[2021-10-08 13:35] LABS: Chloride 99 mmol/L (98-107); Potassium 3.3 mmoL/L (3.5-5.1); Sodium 136 mmol/L (136-145)
[2021-10-08 13:37] LABS: Blood Urea Nitrogen 15 mg/dl (7-17); Estimated Glomerular Filt Rate 91 ml/min (>60); GFR (African American) 111 ML/MIN (>60)
[2021-10-08 13:38] LABS: Alanine Aminotransferase 37 U/L (12-78); Albumin Level 3.7 g/dl (3.5-5.0); Albumin/Globulin Ratio 1.3 (1.1-1.8); Alkaline Phosphatase 86 U/L (38-126); Anion Gap 7.3 mEq/L (5-15); Aspartate Amino Transferase 37 U/L (14-36); Bilirubin,Total 0.8 mg/dl (0.2-1.3); Calcium 8.5 mg/dl (8.4-10.2); Carbon Dioxide 33 mmol/L (22.0-30.0); Globulin 2.8 g/dL (1.3-3.2); Glucose 101 mg/dl (74-100); Total Protein,Serum 6.5 g/dl (6.3-8.2)
[2021-10-08 13:43] LABS: C-Reactive Protein 12.5 mg/L (0-4)
== END ==
PROVIDERS: PCP Internal Medicine; Visit Provider Podiatrist
DX: M79.671 Pain in right foot (principal); L02.611 Cutaneous abscess of right foot; L03.115 Cellulitis of right lower limb
CPT/HCPCS: 36415; 80053; 85025; 85651; 86140

== ENCOUNTER → 2021-10-11 15:02 | Outpatient (CLI) | payer OTHER, SELFPAY ==
--- NOTE | 2021-10-11 15:02 | MR_ITS ---
FINAL REPORT CLINICAL HISTORY: RIGHT FOOT PAIN. hx 2 back surgeries 2010 and 2020. rt leg weakness and numbness. no recent injury or trauma. prior mr 04-15-20 COMPARISON: No MR foot is available. Plain films dated 10/18/2021 available for comparison. FINDINGS: Multiplanar MR imaging of the right foot was performed with and without contrast. There is no evidence of fracture, bone bruise or marrow edema. There are mild degenerative changes of the midfoot. No bony mass is identified. The musculature is intact. The Lisfranc ligament is intact. The flexor and extensor tendons are intact. The posterior plantar aponeurosis is intact. No localized soft tissue inflammation is identified. No soft tissue mass or cyst is identified. There is no evidence of abnormal contrast enhancement. IMPRESSION: No acute bony abnormality. No evidence of abnormal contrast enhancement. Reviewed, Interpreted and Dictated by Israel Dunn III, MD Transcribed by Consuelo Gonzáles Authenticated by Israel Dunn III, MD on 10/11/2021 04:49:[address] [facility]
== END ==
PROVIDERS: PCP Internal Medicine; Visit Provider Podiatrist
DX: M79.671 Pain in right foot (principal)
CPT/HCPCS: 73720; A9576

== ENCOUNTER 2021-11-17 17:17 | Emergency (ER) | payer OTHER, SELFPAY ==
[2021-11-17 18:50] VITALS: BP 131/98; PULSE 96; RESP 19; TEMP 36.8; O2SAT 98; BMI 36.3
--- NOTE | 2021-11-17 19:19 | HMH.EDUTC ---
[facility] [place] Clinical Impression: Otitis media Qualifiers: Otitis media type: unspecified Laterality: right Qualified Code(s): H66.91 - Otitis media, unspecified, right ear Disposition: Home, Self-Care Condition on Discharge: Good Instructions: Middle Ear Infection, Meclizine, Methylprednisolone Additional Instructions: Take medication as prescribed Follow up with [facility] if no improvement or any worsening of symptoms Return if needed Straight to ER if any life threatening symptoms Prescriptions: Meclizine HCl [Meclizine 25mg Tab] 25 mg PO Q8HP PRN #20 tab PRN Reason: Vertigo Transmission Status: Pending to [facility] methylPREDNISolone [Medrol 4mg tab] 4 mg PO DIRECTED #21 tab Transmission Status: Pending to [facility] Azithromycin [Z-Gerry 250mg Tab] 250 mg PO DIRECTED #6 tab Transmission Status: Pending to [facility] Referrals: Geovanny Lincoln [Primary Care Provider] - As needed Time of Disposition: 19:27 Medical Decision Making - Jeremie Inquiry Pt receiving controlled substance: No Jeremie was queried for this patient: No Vital Signs: 11/17/21 18:50 Temperature 98.3 F Temperature Source Oral Pulse Rate [Right Brachial] 96 H Respiratory Rate 19 Blood Pressure [Right Arm] 131/98 H Blood Pressure Mean [Right Arm] 109 Blood Pressure Source [Right Arm] Automatic Cuff Blood Pressure Position [Right Arm] Sitting 02 Sat by Pulse Oximetry 98 Oxygen Delivery Method Room Air Medical Decision Narrative: Patient state that she has taken azithromycin, meclizine and medrol in the past without complications or reactions [facility] [place] - General Stated complaint: dizzy ear problems Time Seen by Provider: 11/17/21 19:19 Mode of Arrival: Ambulatory Source of Information: Patient Limitations: No Limitations Description of Symptoms (Recalled from Triage Doc. by RN): PATIENT C/O DIZZINESS AND RIGHT EAR PAIN SINCE THIS MORNING HEENT Symptoms (Recalled from RN notes): Yes Resp Symptoms (Recalled from RN notes): No Skin Symptoms (Recalled from RN notes): No MS Symptoms (Recalled from RN notes): No Functional Status (Recalled from RN notes): WNL - History of Present Illness Provider Complaint: Patient states that she has been having dizziness and pain in right ear States that she was also having vertigo State that she gets that sometimes when she has an inner ear infection and she is almost out of meclizine that helps her so she came in - Related Data Home Medications Medication Instructions Recorded Confirmed Albuterol Sulfate [Proair 2 puff IH Q4HP PRN 02/19/21 11/01/21 Respiclick] Buprenorphine HCl/Naloxone HCl 1 each SL DAILY 02/19/21 11/01/21 [Buprenorphine-Nalox 8-2 mg Tab] LORazepam [Lorazepam 0.5mg Tablet] 0.5 mg PO TIDP PRN 02/19/21 11/01/21 Triamterene/Hydrochlorothiazid 1 each PO DAILY 02/19/21 11/01/21 [Triamterene-Hctz 37.5-25 mg Tb] bisoprolol fumarate 5 mg tablet 5 mg PO tab 10/04/21 11/01/21 clonidine HCl 0.2 mg tablet 0.2 mg PO tab 10/04/21 11/01/21 Previous Rx's Medication Instructions Recorded Azithromycin [Z-Gerry 250mg Tab] 250 mg PO DIRECTED #6 tab 11/17/21 Meclizine HCl [Meclizine 25mg Tab] 25 mg PO Q8HP PRN #20 tab 11/17/21 methylPREDNISolone [Medrol 4mg 4 mg PO DIRECTED #21 tab 11/17/21 tab] Allergies Allergy/AdvReac Type Severity Reaction Status Date / Time cephalexin [From Keflex] Allergy Mild Verified 11/01/21 14:47 - Worker's Comp Is this a Worker's Comp case?: No [facility] History - Hepatitis A Screen Drug use history?: No High risk sexual behaviors?: No History of sexually transmitted infection?: No Currently employed?: No Childcare worker?: No Do you have indoor plumbing?: Yes Do you have electricity?: Yes Attestation statement:: This patient has been screened for Hepatitis A risk factors. I have reviewed the patient's past medical history: Yes Medical History: Re
[2021-11-17 19:25] VITALS: BP 131/98; PULSE 96; RESP 19; TEMP 36.8; O2SAT 98
== END 2021-11-17 19:29 | disposition home or self-care (01) ==
PROVIDERS: Emergency Provider Nurse Practitioner; PCP Internal Medicine
DX: H66.91 Otitis media, unspecified, right ear (principal); R42 Dizziness and giddiness; I47.1 Supraventricular tachycardia; E78.5 Hyperlipidemia, unspecified; J45.909 Unspecified asthma, uncomplicated; F17.210 Nicotine dependence, cigarettes, uncomplicated; Z79.51 Long term (current) use of inhaled steroids; Z79.899 Other long term (current) drug therapy; Z88.8 Allergy status to other drugs, medicaments and biological substances; Z82.49 Family history of ischemic heart disease and other diseases of the circulatory system; Z80.9 Family history of malignant neoplasm, unspecified; Z82.5 Family history of asthma and other chronic lower respiratory diseases
CPT/HCPCS: 99213; G0463

== ENCOUNTER 2023-06-11 22:23 | Observation (INO) | payer OTHER, SELFPAY ==
[2023-06-11 22:24] VITALS: BP 126/82; PULSE 80; RESP 14; TEMP 36.3; O2SAT 99; BMI 34.7
[2023-06-11 22:45] LABS: Basophils # 0.2 K/mm3 (0-0.2); Basophils % 0.6 % (0.1-2.0); Eosinophils # 0.3 K/mm3 (0.0-0.4); Eosinophils % 1.4 % (0.1-12.0); Hematocrit 50.5 % (37.0-47.0); Hemoglobin 17.3 g/dL (12.2-16.2); Lymphocytes # 6.7 K/mm3 (0.7-4.5); Lymphocytes % 28.4 % (10-50); Mean Corpuscular HGB Conc 34.3 g/dL (31.8-35.4); Mean Corpuscular Hemoglobin 31.2 pg (27.0-31.2); Mean Corpuscular Volume 90.8 fl (81-99); Mean Platelet Volume 7.4 fl (7.4-10.4); Monocytes # 1.4 K/mm3 (0.1-1.0); Monocytes % 6.2 % (1.7-9.3); Neutrophils # 14.8 K/mm3 (1.8-7.8); Neutrophils % 63.4 % (37.0-80.0); Platelet Count 255 K/mm3 (142-424); Red Blood Count 5.56 M/mm3 (4.20-5.40); Red Cell Distribution Width 14.3 % (11.5-17.5)
[2023-06-11 22:48] LABS: White Blood Count 23.4 K/mm3 (4.8-10.8)
--- NOTE | 2023-06-11 22:48 | ECG_ITS ---
APPROVED REPORT Exam: Resting ECG HR:103 bpm ECG Measurements Heart Rate 103 AXES NV 196 P 72 QRSd 93 QRS 79 QT 421 T 67 QTc 481 Conclusion SINUS TACHYCARDIA NONSPECIFIC T-WAVE ABNORMALITY ABNORMAL RHYTHM ECG UNCONFIRMED REPORT Electronically signed by : Tai Dyer MD 06/12/2023 19:24:21
[2023-06-11 22:51] VITALS: BP 106/69; BP 121/63; BP 126/72; PULSE 106; PULSE 112; PULSE 95
[2023-06-11 22:51] LABS: Chloride 99 mmol/L (98-107); Sodium 135 mmol/L (136-145)
[2023-06-11 22:52] LABS: MANUAL DIFFERENTIAL MANUAL DIFFERENTIAL (MANUAL DIFF)
[2023-06-11 22:54] LABS: Alanine Aminotransferase 45 U/L (12-78); Albumin Level 3.9 g/dl (3.5-5.0); Albumin/Globulin Ratio 1.1 (1.1-1.8); Alkaline Phosphatase 99 U/L (38-126); Anion Gap 8.8 mEq/L (5-15); Aspartate Amino Transferase 40 U/L (14-36); Bilirubin,Total 0.8 mg/dl (0.2-1.3); Blood Urea Nitrogen 13 mg/dl (7-17); Carbon Dioxide 30 mmol/L (22.0-30.0); Creatinine Clearance Estimated 158 mL/min (50-200); Estimated Glomerular Filt Rate 91 ml/min (>60); GFR (African American) 110 ML/MIN (>60); Globulin 3.6 g/dL (1.3-3.2); Total Protein,Serum 7.5 g/dl (6.3-8.2)
[2023-06-11 22:55] LABS: Glucose 187 mg/dl (74-100)
[2023-06-11 23:04] LABS: Potassium 2.8 mmoL/L (3.5-5.1)
[2023-06-11 23:08] LABS: Eosinophils % 2 % (0-3); Lymphocytes % 39 % (10-50); Monocytes % 5 % (2-9); Neutrophils % 52 % (42-76); Total Cells Counted 100; Troponin I < 0.01 ng/ml (0.00-0.034)
--- NOTE | 2023-06-11 23:08 | CT_ITS ---
PROCEDURE INFORMATION: Exam: CTA Neck With Contrast Exam date and time: 06/11/2023 11:30 PM Age: 42 years old Clinical indication: Vertigo; Additional info: Sudden onset new vertigo, AMS TECHNIQUE: Imaging protocol: Computed tomographic angiography of the neck with contrast. 3D rendering (Not supervised by radiologist): MIP and/or 3D reconstructed images were created by the technologist. Radiation optimization: All CT scans at this facility use at least one of these dose optimization techniques: automated exposure control; mA and/or kV adjustment per patient size (includes targeted exams where dose is matched to clinical indication); or iterative reconstruction. Contrast material: ISOUVE; Contrast volume: 100 ml; Contrast route: INTRAVENOUS (IV); REPORTING DATA: Count of CT and Cardiac NM exams in prior 12 months: This patient has received 0 known CTs and 0 known cardiac nuclear medicine studies in the 12 months prior to the current study. COMPARISON: CT ANGIO NECK 02/19/2021 10:48 AM FINDINGS: Right common carotid artery: No stenosis. No dissection or occlusion. Right internal carotid artery: No stenosis of the extracranial segment. No dissection or occlusion. Right external carotid artery: No occlusion or stenosis of the origin. Left common carotid artery: Mild calcific plaque left carotid bifurcation without hemodynamically significant stenosis of the internal carotid artery. Left internal carotid artery: No stenosis of the extracranial segment. No dissection or occlusion. Left external carotid artery: No occlusion or stenosis of the origin. Right vertebral artery: No stenosis. No dissection or occlusion. Left vertebral artery: No stenosis. No dissection or occlusion. Thyroid: Small calcified lesion right thyroid lobe axial image . Soft tissues: Normal. No significant soft tissue swelling. Bones/joints: Old right rib fracture axial image 11/05. IMPRESSION: 1. No evidence for occlusion, stenosis or dissection of the cervical vessels. 2. Small calcified lesion right thyroid lobe; recommend ultrasound. 3. Mild calcific plaque left carotid bifurcation without hemodynamically significant stenosis of the left internal carotid artery. Probable focal calcified stenosis of the left external carotid artery. 4. Old right rib fracture axial image 11/05. COMMENTS: Consistent with the [employer]'s Incidental Findings Committee white paper (J Am Reza Radiol 2015): In patients aged 35 years and older with an incidental thyroid nodule equal to or greater than 1.[address], MRI or extrathyroidal US, further evaluation with dedicated thyroid US is recommended for patients with normal life expectancy and without comorbidities. For smaller nodules without suspicious features, no further evaluation or follow up is recommended. REFERENCES: NASCET CRITERIA. The degree of stenosis in the cervical segment of the internal carotid artery is based on NASCET criteria. Normal is no stenosis. Mild is less than 50% stenosis. Moderate is 50-69% stenosis. Severe is 70% to 99% stenosis. Total occlusion is no detectable patent lumen.
--- NOTE | 2023-06-11 23:08 | CT_ITS ---
PROCEDURE INFORMATION: Exam: CT Head Without Contrast Exam date and time: 06/11/2023 11:30 PM Age: 42 years old Clinical indication: Altered mental status/memory loss and dizziness; Additional info: Sudden onset new vertigo, AMS TECHNIQUE: Imaging protocol: Computed tomography of the head without contrast. Radiation optimization: All CT scans at this facility use at least one of these dose optimization techniques: automated exposure control; mA and/or kV adjustment per patient size (includes targeted exams where dose is matched to clinical indication); or iterative reconstruction. REPORTING DATA: Count of CT and Cardiac NM exams in prior 12 months: This patient has received 0 known CTs and 0 known cardiac nuclear medicine studies in the 12 months prior to the current study. COMPARISON: CT HEAD/BRAIN WO CON 02/19/2021 9:19 AM FINDINGS: Brain: Normal. No hemorrhage. Unremarkable white matter. No mass effect. Cerebral ventricles: No ventriculomegaly. Paranasal sinuses: Visualized sinuses are unremarkable. No fluid levels. Mastoid air cells: Visualized mastoid air cells are well aerated. Bones/joints: Unremarkable. No acute fracture. Soft tissues: Unremarkable. IMPRESSION: No acute intracranial abnormality.
--- NOTE | 2023-06-11 23:08 | CT_ITS ---
PROCEDURE INFORMATION: Exam: CTA Head With Contrast, Arteriography Exam date and time: 06/11/2023 11:30 PM Age: 42 years old Clinical indication: Vertigo; Additional info: Sudden onset new vertigo, AMS TECHNIQUE: Imaging protocol: Computed tomographic angiography of the head with contrast. Exam focused on the arteries. 3D rendering (Not supervised by radiologist): MIP and/or 3D reconstructed images were created by the technologist. Radiation optimization: All CT scans at this facility use at least one of these dose optimization techniques: automated exposure control; mA and/or kV adjustment per patient size (includes targeted exams where dose is matched to clinical indication); or iterative reconstruction. Contrast material: ISOVUE; Contrast volume: 100 ml; Contrast route: INTRAVENOUS (IV); REPORTING DATA: Count of CT and Cardiac NM exams in prior 12 months: This patient has received 0 known CTs and 0 known cardiac nuclear medicine studies in the 12 months prior to the current study. COMPARISON: CT ANGIO HEAD 02/19/2021 10:48 AM FINDINGS: ANTERIOR CIRCULATION: Right internal carotid artery: Intracranial segment is patent with no significant stenosis. No aneurysm. Right middle cerebral artery: No occlusion or significant stenosis. No aneurysm. Right anterior cerebral artery: No occlusion or significant stenosis. No aneurysm. Left internal carotid artery: Intracranial segment is patent with no significant stenosis. No aneurysm. Left middle cerebral artery: No occlusion or significant stenosis. No aneurysm. Left anterior cerebral artery: No occlusion or significant stenosis. No aneurysm. POSTERIOR CIRCULATION: Right vertebral artery: No occlusion or significant stenosis. No aneurysm. Left vertebral artery: No occlusion or significant stenosis. No aneurysm. Basilar artery: No occlusion or significant stenosis. No aneurysm. Right posterior cerebral artery: No occlusion or significant stenosis. No aneurysm. Left posterior cerebral artery: No occlusion or significant stenosis. No aneurysm. Brain: No definite mass, mass effect, or midline shift. Cerebral ventricles: No ventriculomegaly. Bones/joints: Unremarkable. No acute fracture. Soft tissues: Unremarkable. IMPRESSION: No large vessel stenosis or occlusion.
--- NOTE | 2023-06-11 23:08 | XR_ITS ---
PROCEDURE INFORMATION: Exam: XR Chest Exam date and time: 06/11/2023 11:53 PM Age: 42 years old Clinical indication: Other: AMS; Additional info: Sudden onset new vertigo, AMS TECHNIQUE: Imaging protocol: Radiologic exam of the chest. Views: 1 view. COMPARISON: CR XR CHEST PORTABLE 02/19/2021 10:11 AM FINDINGS: Lungs: Unremarkable. No consolidation. Pleural spaces: Unremarkable. No pleural effusion. No pneumothorax. Heart/Mediastinum: Unremarkable. No cardiomegaly. Bones/joints: Unremarkable. IMPRESSION: No acute findings.
[2023-06-11 23:09] LABS: Platelet Estimate Normal; RBC Morphology Normal
--- NOTE | 2023-06-11 23:16 | PC.NURSE ---
notified of code sepsis
--- NOTE | 2023-06-11 23:17 | PC.NURSE ---
notified nursing staff that 2L of LR to be given for sepsis bolus per IBW
[2023-06-11 23:18] LABS: VBG Base Excess 1.8 mmol/L (-2.4-2.3); VBG HCO3 26.3 mmol/L (23-30); VBG Oxygen Saturation 92.4 % (50-70); VBG PCO2 41.9 mmol/L (35-51); VBG PH 7.42 mmol/L (7.31-7.41); VBG PO2 57.5 mmol/L (28-40); VBG Total CO2 27.6 mmol/L (23-27)
[2023-06-11 23:22] LABS: Microscopic, Urine URINE MICROSCOPIC (MICROSCOPIC)
[2023-06-11 23:27] LABS: Appearance,Urine CLEAR (Clear); Bilirubin,Urine Negative (Negative); Blood, Urine Negative (Negative); Color,Urine YELLOW (Yellow); Glucose,Urine (UA) Negative (Negative); Ketones,Urine Negative (Negative); Leukocyte Esterase,Urine Negative (Negative); Nitrate,Urine Negative (Negative); Protein,Urine Negative (Negative); Specific Gravity, Urine 1.025 (1.005-1.030); Urobilinogen,Urine 0.2 EU/dl (0.2)
[2023-06-11 23:29] LABS: Creatine Kinase 100 U/L (30-135); Lactic Acid 1.6 mmol/L (0.7-2.1); Magnesium 1.7 mg/dl (1.6-2.3)
[2023-06-11 23:30] LABS: WBC,Urine Occasional #/hpf (0-3)
[2023-06-11 23:39] LABS: Acetaminophen < 10 ug/ml (10-30); Ethyl Alcohol < 10 mg/dl (0-10); Salicylate < 1.0 mg/dL (2.0-20.0)
--- NOTE | 2023-06-11 23:44 | HMH.EDGENADL ---
Discharge Plan Disposition Patient Disposition: Admitted Condition: Fair Clinical Impressions Clinical Impression: Vertigo, Abnormal imaging of thyroid, Hypokalemia, Leukocytosis Discharge ED Provider: Dennise Ortiz General Adult HPI General Chief complaint: Dizziness Stated complaint: dizzy Time Seen by Provider: 06/11/23 23:04 Mode of Arrival: Wheelchair Source of Information: Patient Limitations: No Limitations Description of Symptoms (Recalled from ER Triage Doc. by RN): pt c/o dizziness that started @ 8pm that increases when moving around. History of Present Illness HPI narrative: This patient is a 42-year-old female with a history of obesity, BPPV, labyrinthitis, sinusitis presenting to the emergency department for evaluation with concern for sudden onset dizziness that started at 8 PM. She notes that it is constant but increases with movement. This is similar to prior episodes of vertigo. She was well prior to this. She denies any fevers, chills, ear pain, hearing loss, cough, congestion, numbness, tingling, weakness, vision changes, abdominal pain,vomiting, changes bowel movements, or other concerns. She does admit to nausea. Related Data Home Medications Medication Instructions Recorded Confirmed albuterol sulfate 90 mcg/actuation 2 puff IH Q4HP PRN Asthma 02/19/21 06/12/23 breath activated powder inhaler lorazepam 0.5 mg tablet 0.5 mg PO TIDP PRN Anxiety 02/19/21 06/12/23 triamterene 37.5 1 each PO DAILY Hypertension 02/19/21 06/12/23 mg-hydrochlorothiazide 25 mg tablet bisoprolol fumarate 5 mg tablet 5 mg PO DAILY 10/04/21 06/12/23 clonidine HCl 0.2 mg tablet 0.2 mg PO DAILY 10/04/21 06/12/23 Previous Rx's Medication Instructions Recorded meclizine 25 mg chewable tablet 25 mg PO Q8HP PRN Vertigo #20 tabs 11/17/21 methylprednisolone 4 mg tablet 4 mg PO DIRECTED #21 tabs 11/17/21 Allergies Allergy/AdvReac Type Severity Reaction Status Date / Time cephalexin [From Keflex] Allergy Mild Verified 11/01/21 14:47 [facility] Disclaimer: The information contained in this section may have been updated after the patient was seen, as this information can be updated by other users. Social History (Updated 06/12/23 @ 02:05 by Danelle Nunez RN) Smoking Status: Current every day smoker tobacco type: cigarettes packs per day: 1 alcohol intake: never substance use type: denies use current occupational status: employed Travel in the last 8 weeks: None ROS Obtained: Yes All systems reviewed & no additional complaints except as documented Physical Exam General General appearance: alert and in no apparent distress Comment: Lying in bed with eyes closed, uncomfortable appearing, writhing around Head Head exam: atraumatic and normocephalic Eye Eye exam: Present normal appearance, PERRL and EOMI ENT ENT exam: Present normal exam, normal oropharynx, mucous membranes moist and normal external ear exam Neck Neck exam: Present normal inspection, full ROM and trachea midline; Absent tenderness Chest Chest inspection: Present normal inspection and symmetric chest wall rise; Absent tenderness Respiratory Respiratory exam: Present normal lung sounds bilaterally; Absent respiratory distress, wheezes, stridor or accessory muscle use Cardiovascular Cardiovascular exam: Present normal rhythm and tachycardia Abdominal Exam Abdominal exam: Present soft; Absent distention, tenderness or guarding Extremities Exam Extremities exam: Present normal inspection, full ROM and normal capillary refill; Absent tenderness or edema Back Exam Back exam: Present normal inspection and full ROM; Absent tenderness Neurological Exam Neurological exam: Present alert, oriented X3, CN II-XII intact and normal gait; Absent motor sensory deficit Expanded Neurological Exam Patient oriented to: Present person, place and time Speech: Present fluid speech Cranial nerves: Normal: EOM function (II, III, IV, ), facial sens
[2023-06-11 23:59] VITALS: BP 111/66; PULSE 90; RESP 14; O2SAT 96
[2023-06-12] VITALS (13 sets, daily range): BP systolic 98–173; BP diastolic 60–89; PULSE 66–92; RESP 13–20; TEMP 36.4–36.7; O2SAT 93–99; BMI 36.2
--- NOTE | 2023-06-12 01:14 | PC.NURSE ---
Admissions notified for admit. Hospitalist, Room [address] [place], Vertigo
[2023-06-12 01:21] LABS: T4 (Thyroxine) 10.9 ug/dl (5.53-11.0)
--- NOTE | 2023-06-12 02:06 | PC.NURSE ---
Patient arrived to floor via wheelchair at 01:47.
--- NOTE | 2023-06-12 02:16 | EXP.HP ---
History of Present Illness *Admission Date: 06/12/23 *Reason for visit:: Vertigo *History of present illness: 42 year old female presented to the ED for c/o dizziness and nausea that started while watching TV. PMHX HTN, anxiety, smoking, and prior vertigo. Pt's s/s unrelieved in ED with meclizine. CT of pt's neck reveals focal stenosis of left external carotid artery and a small calcified lesion of right thyroid lobe. The pt's blood work up revealed a leukocytosis of 23.4, hypokalemia of 2.8, and normal lactic acid. The pt recieved 3 10 meq IV of potassium. The ED physician consulted the hospitalist team for further medical management. The patient arrived to the medical floor in no acute distress. She is unable to open her eyes due to dizziness. There is no neurological involvement. She will be placed on cont. pulse ox and receive 2mg of Valium Addendum. I agree with the NEVA Bautista note. Patient is a 42-year-old female presented to hospital for dizziness, nausea. At time of my evaluation patient reports her dizziness has improved, she has a history of vertigo, she takes meclizine at home. She mentions she has been able to walk to the restroom and maintain balance. Patient denies chest pain nausea vomiting diarrhea constipation dysuria fever chills. Patient mentions she is tolerating diet. Assessment and plan Vertigo-improved Continue as needed meclizine Patient declined MRI CT head, CTA head and neck negative we will follow-up with neurologic process Continue aspirin, statin Consult PT/OT Orthostatic vitals checked-and noted UA was checked-unremarkable for infection Leukocytosis - steroid induced, improving, patient was on steroids for asthma [facility] Disclaimer: The information contained in this section may have been updated after the patient was seen, as this information can be updated by other users. Social History (Updated 06/12/23 @ 02:05 by Danelle Nunez RN) Smoking Status: Current every day smoker tobacco type: cigarettes packs per day: 1 alcohol intake: never substance use type: denies use current occupational status: employed Travel in the last 8 weeks: None Review of Systems ENT Ears, Nose, Mouth, and Throat: Reports dizziness and Reports vertigo *Cardiovascular Cardiovascular: Reports system reviewed and no additional complaints, except as documented *Respiratory Respiratory: Reports system reviewed and no additional complaints, except as documented *Gastrointestinal Gastrointestinal: Reports system reviewed and no additional complaints, except as documented *Genitourinary Genitourinary: Reports system reviewed and no additional complaints, except as documented *Musculoskeletal Musculoskeletal: Reports system reviewed and no additional complaints, except as documented *Neurologic Neurologic: Reports as per HPI, Reports dizziness and Reports vertigo Meds Home Medications and Allergies Home Medications Medication Instructions Recorded Confirmed Type albuterol sulfate 90 mcg/actuation 2 puff IH Q4HP PRN Asthma 02/19/21 06/12/23 History breath activated powder inhaler lorazepam 0.5 mg tablet 0.5 mg PO TIDP PRN Anxiety 02/19/21 06/12/23 History triamterene 37.5 1 each PO DAILY Hypertension 02/19/21 06/12/23 History mg-hydrochlorothiazide 25 mg tablet bisoprolol fumarate 5 mg tablet 5 mg PO DAILY 10/04/21 06/12/23 History clonidine HCl 0.2 mg tablet 0.2 mg PO HSP PRN Sleep 10/04/21 06/12/23 History buprenorphine 8 mg-naloxone 2 mg 1 tab sublingual DAILY 06/12/23 06/12/23 History sublingual tablet fluoxetine 10 mg capsule 10 mg PO DAILY 06/12/23 06/12/23 History New Prescriptions to Start Prescriptions: Allergies Allergy/AdvReac Type Severity Reaction Status Date / Time cephalexin [From Keflex] Allergy Mild Verified 11/01/21 14:47 Exam Data for Last 24 hours Vital signs and Labs for Last 24 Hours: Temp Pulse Resp BP Pulse Ox O2 Del Method 98.1 F 75 14 1
[2023-06-12 02:35] LABS: Troponin I < 0.01 ng/ml (0.00-0.034)
[2023-06-12 04:40] LABS: Basophils # 0.1 K/mm3 (0-0.2); Basophils % 0.4 % (0.1-2.0); Eosinophils # 0.3 K/mm3 (0.0-0.4); Eosinophils % 1.6 % (0.1-12.0); Hematocrit 46.8 % (37.0-47.0); Hemoglobin 15.7 g/dL (12.2-16.2); Lymphocytes # 3.4 K/mm3 (0.7-4.5); Lymphocytes % 17.2 % (10-50); Mean Corpuscular HGB Conc 33.6 g/dL (31.8-35.4); Mean Corpuscular Hemoglobin 31.2 pg (27.0-31.2); Mean Corpuscular Volume 92.9 fl (81-99); Mean Platelet Volume 7.7 fl (7.4-10.4); Monocytes # 1.3 K/mm3 (0.1-1.0); Monocytes % 6.7 % (1.7-9.3); Neutrophils # 14.4 K/mm3 (1.8-7.8); Platelet Count 180 K/mm3 (142-424); Red Blood Count 5.04 M/mm3 (4.20-5.40); Red Cell Distribution Width 14.1 % (11.5-17.5); White Blood Count 19.5 K/mm3 (4.8-10.8)
[2023-06-12 05:16] LABS: Troponin I < 0.01 ng/ml (0.00-0.034)
[2023-06-12 05:18] LABS: Anion Gap 8.2 mEq/L (5-15); Blood Urea Nitrogen 10 mg/dl (7-17); Calcium 8.5 mg/dl (8.4-10.2); Carbon Dioxide 30 mmol/L (22.0-30.0); Chloride 100 mmol/L (98-107); Creatinine Clearance Estimated 232 mL/min (50-200); Estimated Glomerular Filt Rate 134 ml/min (>60); GFR (African American) 162 ML/MIN (>60); Glucose 85 mg/dl (74-100); Potassium 3.2 mmoL/L (3.5-5.1); Sodium 135 mmol/L (136-145)
[2023-06-12 05:19] LABS: Chol/HDL Ratio 3.4 (1-3.5); Cholesterol 98 mg/dl (140-200); Direct LDL Cholesterol 53 mg/dL (100-129); HDL Cholesterol 29 mg/dl (40-60); Triglycerides 112 mg/dl (30-150); VLDL Cholesterol 22 mg/dL (0-40)
--- NOTE | 2023-06-12 05:24 | PC.NURSE ---
Since arriving to the floor the patient has been settled. Ember did complain of a headache but was given medication, see MAr. No other issue snoted by patient
--- NOTE | 2023-06-12 07:46 | HMH.PHAINT1 ---
Pharmacy Intervention Comments: home medication reconciliation completed using list form outpatient pharmacy
--- NOTE | 2023-06-12 08:00 | US_ITS ---
FINAL REPORT CLINICAL HISTORY: nodule FINDINGS: THYROID ULTRASOUND The right lobe of the thyroid measures 4.3 x 1.8 x 1.5 cm. The left lobe of the thyroid measures 3.5 x 1.7 x 1.5 cm. The parenchyma shows normal echogenicity. In the right thyroid is a 1.2 x 1.1 x 0.7 cm peripherally calcified nodule consistent with a TI-RADS 2. In the left lobe of the thyroid is a 4 x 3 x 4 mm cystic TI-RADS 1 nodule. Also in the left lobe is an 8 x 6 x 8 mm cystic TI-RADS 1 nodule. IMPRESSION: Bilateral subcentimeter nodules do not meet criteria for follow-up. Reviewed, Interpreted and Dictated by Israel Dunn III, MD Transcribed by Jacob Morrell Authenticated and [facility]
--- NOTE | 2023-06-12 11:34 | PC.NURSE ---
PT IS VERY ADAMANT ABOUT REFUSING HER MRI AT THIS TIME. STATES SHE FEELS BETTER NOW AND JUST WANTS TO SLEEP
--- NOTE | 2023-06-12 15:30 | HMH.PTEV ---
Physical Therapy Evaluation Rehab PT IP Evaluation Start: 06/12/23 13:56 Freq: ONCE Status: Active Protocol: Document 06/12/23 15:26 PHORNE (Rec: 06/12/23 15:30 PHORNE [id number]) Subjective/History History History 42 yowf adm to [facility] with sudden onset severe vertigo, not positional in nature, constant and unchanged for several hours without relief and associated with nausea. 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 Subjective Subjective Currently she reports no vertigo symptoms and no nausea . I feel a whole lot better. She agrees to mobility assessment. New diagnosis of cancer in past 12 No months? Rehab PT IP Eval Objective Appearance Patient Behavior Appropriate Patient Orientation Person,Place,Time Difficulty following instructions none Speech Pattern Clear Ambulation Patient Able to Ambulate Yes Ambulation Observation IP General Gait Pattern Observation No Deviations/Normal Ambulation Distance (feet) 40 Ambulation Assistive Device None Ambulation Ability Independent Balance Ability to Arise Able, w/o using arms Sitting Balance Steady, safe Standing Balance Narrow stance w/o support Dynamic Sitting Balance Ability Good Dynamic Standing Balance Ability Good Transfers Bed Transfer Ability Independent Chair Transfer Ability Independent Sit to Stand Bed Transfer Ability Independent Sit to Stand Chair Transfer Ability Independent ROM All Extremities PT ROM Status WFL MMT All Extremities PT MMT WFL Rehab PT IP prob,goals,plan Problems Date of Evaluation: 06/12/23 Discharge Plan PT Discharge Plan Pt currently appears to be at baseline for all mobility and self-care. No vertigo at this time. She is appropriate to return home once medically stable for d/c. Eval Complexity Eval Charge Codes 83346 - High Complexity PHYSICIAN CERTIFICATION: I certify the specified therapy services for Stephanie Cain are required, authorized, and reviewed every 30 days.
--- NOTE | 2023-06-12 16:51 | HMH.OTEV ---
OT Inpatient Evaluation Rehab OT IP Evaluation Start: 06/12/23 13:56 Freq: ONCE Status: Active Protocol: Document 06/12/23 16:40 [email or web address] (Rec: 06/12/23 16:51 SAÚL [id number]) Rehab OT IP Assessment Subjective History 42 year old female presented to the ED for c/o dizziness and nausea that started while watching TV. PMHX HTN, anxiety , smoking, and prior vertigo. Pt's s/s unrelieved in ED with meclizine. CT of pt's neck reveals focal stenosis of left external carotid artery and a small calcified lesion of right thyroid lobe. The pt's blood work up revealed a leukocytosis of 23.4, hypokalemia of 2.8, and normal lactic acid. The pt recieved 3 10 meq IV of potassium. The ED physician consulted the hospitalist team for further medical management. The patient arrived to the medical floor in no acute distress. She is unable to open her eyes due to dizziness. There is no neurological involvement. She will be placed on cont. pulse ox and receive 2mg of Valium Patient lives with parents and son. Independent with all ADLs and fx'l mobility prior to hospitalization. Subjective I just want to go home. Analysis Patient's ability to participate in bed mobility, transfers, toileting and LB drsg. Patient completed all task independently. No LOB noted. No SOB noted. Assisted Patient back to bed at end of session. Objective Patient Orientation Person,Place,Name,Age,Birthday ,Year Upper Extremity Gross ROM WFL Bed Mobility bed mobility - supine/sit Assist Level Independent Transfer Training Sit/Stand Transfer Assist Level Independent Chair Transfer Ability Independent Chair Transf
--- NOTE | 2023-06-14 14:07 | CARE MANAGER ---
Attempted to contact patient related to hospital discharge x 2. Left VM message. NASRA Esquivel
--- NOTE | 2023-07-01 17:30 | EXP.DC.SUM ---
General Admission date:: 06/12/23 Discharge date: 06/13/23 HPI HPI HPI: 42 year old female presented to the ED for c/o dizziness and nausea that started while watching TV. PMHX HTN, anxiety, smoking, and prior vertigo. Pt's s/s unrelieved in ED with meclizine. CT of pt's neck reveals focal stenosis of left external carotid artery and a small calcified lesion of right thyroid lobe. The pt's blood work up revealed a leukocytosis of 23.4, hypokalemia of 2.8, and normal lactic acid. The pt recieved 3 10 meq IV of potassium. The ED physician consulted the hospitalist team for further medical management. The patient arrived to the medical floor in no acute distress. She is unable to open her eyes due to dizziness. There is no neurological involvement. She will be placed on cont. pulse ox and receive 2mg of Valium Addendum. I agree with the NEVA Bautista note. Patient is a 42-year-old female presented to hospital for dizziness, nausea. At time of my evaluation patient reports her dizziness has improved, she has a history of vertigo, she takes meclizine at home. She mentions she has been able to walk to the restroom and maintain balance. Patient denies chest pain nausea vomiting diarrhea constipation dysuria fever chills. Patient mentions she is tolerating diet. Assessment and plan Vertigo-improved Continue as needed meclizine Patient declined MRI CT head, CTA head and neck negative we will follow-up with neurologic process Continue aspirin, statin Consult PT/OT Orthostatic vitals checked-and noted UA was checked-unremarkable for infection Leukocytosis - steroid induced, improving, patient was on steroids for asthma Hospital Course Hospital Course Hospital Course: Patient was seen and evaluated at the bedside on the day of discharge. Patient is stable for discharge. Patient wishes to be discharged. All patient questions were answered and patient was given time to ask questions. Patient was discharged in stable condition. Patient is a 42-year-old female presented to hospital for dizziness, nausea. At time of my evaluation patient reports her dizziness has improved, she has a history of vertigo, she takes meclizine at home. She mentions she has been able to walk to the restroom and maintain balance. Patient denies chest pain nausea vomiting diarrhea constipation dysuria fever chills. Patient mentions she is tolerating diet. Assessment and plan Vertigo-improved Continue as needed meclizine Patient declined MRI CT head, CTA head and neck negative we will follow-up with neurologic process Continue aspirin, statin Consult PT/OT Orthostatic vitals checked-and noted UA was checked-unremarkable for infection Leukocytosis - steroid induced, improving, patient was on steroids for asthma Patient symptoms improved, patient desires to be discharged, patient counseled to f/u with PCP as OP Exam Data for Last 24 hours Vital signs and Labs for Last 24 Hours: Temp Pulse Resp BP Pulse Ox O2 Del Method O2 Flow Rate 98.1 F 66 18 118/60 95 Room Air 1 06/12/23 16:00 06/12/23 16:00 06/12/23 16:00 06/12/23 16:00 06/12/23 16:00 06/12/23 18:32 06/12/23 14:47 DS: Diagnosis Discharge Diagnosis (1) Benign paroxysmal positional vertigo: Status: Acute Code(s): H81.10 - Benign paroxysmal vertigo, unspecified ear Qualifiers: Laterality: unspecified laterality Qualified Code(s): H81.10 - Benign paroxysmal vertigo, unspecified ear (2) Vertigo: Status: Acute Code(s): R42 - Dizziness and giddiness (3) Leukocytosis: Status: Acute Code(s): D72.829 - Elevated white blood cell count, unspecified (4) Hypokalemia: Status: Acute Code(s): E87.6 - Hypokalemia (5) Abnormal imaging of thyroid: Status: Acute Code(s): R93.89 - Abnormal findings on diagnostic imaging of other specified body structures (6) HTN (hypertension): Status: Acu
== END 2023-06-12 18:53 | disposition home or self-care (01) ==
LOC: ER 06-12 01:12 → 2ND 06-12 01:37
PROVIDERS: Emergency Medicine; Nurse Practitioner Critical Care Medicine; Admitting Provider Internal Medicine Adolescent Medicine; Emergency Provider Emergency Medicine; PCP Internal Medicine; Visit Provider Internal Medicine Adolescent Medicine
DX: H81.10 Benign paroxysmal vertigo, unspecified ear (principal); E87.6 Hypokalemia; I10 Essential (primary) hypertension; F41.9 Anxiety disorder, unspecified; F17.210 Nicotine dependence, cigarettes, uncomplicated; Z79.899 Other long term (current) drug therapy; I65.22 Occlusion and stenosis of left carotid artery; E66.9 Obesity, unspecified; Z68.35 Body mass index [BMI] 35.0-35.9, adult
CPT/HCPCS: 36415; 70450; 70496; 70498; 71045; 76536; 80048; 80053; 80061; 80329; 81001; 82550; 82803; 83605; 83735; 84436; 84443; 84484; 85007; 85025; 87040; 87086; 93005; 97163; 97165; 99285; G0378; J2405; Q9967

== ENCOUNTER 2023-10-17 13:53 | Emergency (ER) | payer OTHER, SELFPAY ==
[2023-10-17 13:54] VITALS: BP 154/83; PULSE 113; RESP 15; TEMP 36.9; O2SAT 98; BMI 34.7
[2023-10-17 13:55] VITALS: BP 154/83; PULSE 118; O2SAT 99
[2023-10-17 14:00] VITALS: BP 121/81; PULSE 101; O2SAT 97
--- NOTE | 2023-10-17 14:06 | ED_ITS ---
Discharge Plan Disposition Patient Disposition: Home, Self-Care Condition: Good Prescriptions Prescriptions: New doxycycline hyclate 100 mg capsule 100 mg PO BID 7 Days Qty: 14 0RF No Action bisoprolol fumarate 5 mg tablet 5 mg PO DAILY Patient Comments: TAKE ONE TABLET BY MOUTH EVERY DAY FOR blood pressure AND heart clonidine HCl 0.2 mg tablet 0.2 mg PO HSP PRN (Reason: Sleep) Patient Comments: TAKE 1 TABLET BY MOUTH AT BEDTIME fluoxetine 10 mg capsule 10 mg PO DAILY Patient Comments: TAKE 1 CAPSULE BY MOUTH ONCE DAILY buprenorphine-naloxone 8-2 mg tablet, sublingual 1 tab SUBLINGUAL DAILY lorazepam 0.5 MG tablet 0.5 mg PO TIDP PRN (Reason: Anxiety) triamterene-hydrochlorothiazid 1 EACH tablet 1 each PO DAILY albuterol sulfate 90 MCG aerosol powdr breath activated 2 puff IH Q4HP PRN (Reason: Asthma) Referrals Follow up/Referrals: Provider,Referral, MD [Referring] - See instructions Activity Restrictions/Add. Instructions Additional Instructions/Restrictions: Please keep dressing in place for 24 hours. Then you may wash with fingertip with soap and water. Do not place any type of occlusive dressing or ointment on the wound. Please return to the emergency department if any signs of redness increased pain or drainage from the wound. I have called in a prescription for Keflex to your pharmacy. Clinical Impressions Clinical Impression: Laceration of lower leg, right Qualifiers: Encounter type: initial encounter Qualified Code(s): S81.811A - Laceration without foreign body, right lower leg, initial encounter Instructions Patient Instructions: DI for Laceration Repair Discharge ED Provider: Yoshi Archibald General Adult HPI <REBEKAH Snider - Last Filed: 10/17/23 14:59> General Chief complaint: Wound/Laceration Stated complaint: lac to leg WC Time Seen by Provider: 10/17/23 14:03 Mode of Arrival: Ambulatory Source of Information: Patient Limitations: No Limitations Description of Symptoms (Recalled from ER Triage Doc. by RN): 43 yo F presents to ED for laceration. 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 pt reports a metal lid fell down and caught her right lundy. pt has laceration on lower lundy of right leg. History of Present Illness HPI narrative: She is a 43-year-old female who presents with a laceration to the right distal anterior tib-fib. Patient works in [employer] at [employer] and a food tray a metal lid fell and caught her anterior distal right tibia proximal to the flexor crease. Related Data Home Medications Medication Instructions Recorded Confirmed albuterol sulfate 90 mcg/actuation 2 puff IH Q4HP PRN Asthma 02/19/21 06/12/23 breath activated powder inhaler lorazepam 0.5 mg tablet 0.5 mg PO TIDP PRN Anxiety 02/19/21 06/12/23 triamterene 37.5 1 each PO DAILY Hypertension 02/19/21 06/12/23 mg-hydrochlorothiazide 25 mg tablet bisoprolol fumarate 5 mg tablet 5 mg PO DAILY 10/04/21 06/12/23 clonidine HCl 0.2 mg tablet 0.2 mg PO HSP PRN Sleep 10/04/21 06/12/23 buprenorphine 8 mg-naloxone 2 mg 1 tab sublingual DAILY 06/12/23 06/12/23 sublingual tablet fluoxetine 10 mg capsule 10 mg PO DAILY 06/12/23 06/12/23 Previous Rx's Medication Instructions Recorded doxycycline hyclate 100 mg capsule 100 mg PO BID 7 days #14 caps 10/17/23 Allergies Allergy/AdvReac Type Severity Reaction Status Date / Time cephalexin [From Keflex] Allergy Mild Verified 11/01/21 14:47 [facility] <REBEKAH Snider - Last Filed: 10/17/23 14:59> [facility] Disclaimer: The information contained in this section may have been updated after the patient was seen, as this information can be updated by other users. Social History (Updated 06/12/23 @ 02:05 by Danelle Nunez RN) Smoking Status: Current every day smoker tobacco type: cigarettes packs per day: 1 alcohol intake: never substance use type: denies use current occupational status: employed Travel in the last 8 weeks: None <REBEKAH Snider - Last Filed: 10/17/23 14:59> ROS Obtained: Yes Systems reviewed as appropriate & no additional complaints except as documented Physical Exam <REBEKAH Snider - Last Filed: 10/17/23 14:59> General General appearance: alert and in no apparent distress Respiratory Respiratory exam: Present normal lung sounds bilaterally; Absent accessory muscle use Cardiovascular Cardiovascular exam: Present regular rate, normal rhythm, normal heart sounds, +S1 and +S2 Neurological Exam Neurological exam: Present alert and oriented X3 Psychiatric Psychiatric exam: Present normal mood Skin Skin exam: Present other (Patient has a 5 cm laceration and a semilunar fashion over the anterior distal right lower leg. Remaining skin exam is pink warm and dry) Medical Decision Making <REBEKAH Snider - Last Filed: 10/17/23 14:59> Medical Records Medical records reviewed: Yes I reviewed the patient's medical records. Jeremie Inquiry Pt receiving controlled substance: No Vital Signs: 10/17/23 13:54 10/17/23 13:55 10/17/23 14:00 Temperature 98.4 F Temperature Source Oral Pulse Rate 118 H 101 H Pulse Rate [Left Radial] 113 H Respiratory Rate 15 Blood Pressure 154/83 H 121/81 Blood Pressure [Right Arm] 154/83 H Blood Pressure Mean Blood Pressure Mean [Right Arm] 106 02 Sat by Pulse Oximetry 98 99 97 Oxygen Delivery Method Room Air 10/17/23 14:30 10/17/23 15:00 10/17/23 15:22 Temperature 98.0 F Temperature Source Pulse Rate 103 H 102 H 84 Pulse Rate [Left Radial] Respiratory Rate 20 20 15 Blood Pressure 118/74 110/69 110/69 Blood Pressure [Right Arm] Blood Pressure Mean 92 82 Blood Pressure Mean [Right Arm] 02 Sat by Pulse Oximetry 95 98 Oxygen Delivery Method Orders (Tests/Meds): ED MEDICATIONS Discontinued Medications Generic Name Dose Route Start Last Admin Trade Name Freq PRN Reason Stop Dose Admin Lidocaine HCl 10 ml 10/17/23 14:08 10/17/23 14:29 Lidocaine 1% 10ml Mdv SQ 10/17/23 14:09 10 ml ONCE ONE Administration Tetanus/Reduced Diphtheria/Acell Pertussis 0.5 ml 10/17/23 14:06 10/17/23 14:18 Tet/Diphth/Pert-Adult 0.5ml Syringe IM 10/17/23 14:07 0.5 ml .ONCE ONE Administration ORDERS Category Date Time Status Fibula/tibia XR right 2 views [XR tibia fibula RT 2V] Exams 10/17/23 14:06 Completed Stat Medical Decision Narrative: In summary patient is a 43-year-old female who presents to the emergency department for evaluation of right lower extremity laceration. Patient is medically stable upon arrival, and afebrile. Physical exam shows a 4 and half centimeter laceration to the distal anterior right lower tibia. There is no deformity. Wound is superficial and does not extend to the deeper structures. She is neurovascular intact distally. She does have continuous issues but no arterial bleeding. Differential diagnosis includes simple laceration versus possible open fracture of the tibia. Initial workup will be conducted with plain film x-ray. Iinitial workup reviewed by me and my informal read of her plain film chest x-ray shows no fracture of the tibia-fibula. Upon repeat evaluation ambulatory after laceration repair. Given this patient is appropriate for discharge with instructions for suture removal in 2 weeks given the anatomical location. <Yoshi Archibald MD - Last Filed: 10/20/23 20:28> Vital Signs: 10/17/23 13:54 10/17/23 13:55 10/17/23 14:00 Temperature 98.4 F Temperature Source Oral Pulse Rate 118 H 101 H Pulse Rate [Left Radial] 113 H Respiratory Rate 15 Blood Pressure 154/83 H 121/81 Blood Pressure [Right Arm] 154/83 H Blood Pressure Mean Blood Pressure Mean [Right Arm] 106 02 Sat by Pulse Oximetry 98 99 97 Oxygen Delivery Method Room Air 10/17/23 14:30 10/17/23 15:00 10/17/23 15:22 Temperature 98.0 F Temperature Source Pulse Rate 103 H 102 H 84 Pulse Rate [Left Radial] Respiratory Rate 20 20 15 Blood Pressure 118/74 110/69 110/69 Blood Pressure [Right Arm] Blood Pressure Mean 92 82 Blood Pressure Mean [Right Arm] 02 Sat by Pulse Oximetry 95 98 Oxygen Delivery Method Orders (Tests/Meds): ED MEDICATIONS Discontinued Medications Generic Name Dose Route Start Last Admin Trade Name Freq PRN Reason Stop Dose Admin Lidocaine HCl 10 ml 10/17/23 14:08 10/17/23 14:29 Lidocaine 1% 10ml Mdv SQ 10/17/23 14:09 10 ml ONCE ONE Administration Tetanus/Reduced Diphtheria/Acell Pertussis 0.5 ml 10/17/23 14:06 10/17/23 14:18 Tet/Diphth/Pert-Adult 0.5ml Syringe IM 10/17/23 14:07 0.5 ml .ONCE ONE Administration ORDERS Category Date Time Status Fibula/tibia XR right 2 views [XR tibia fibula RT 2V] Exams 10/17/23 14:06 Completed Stat Medical Decision Narrative: In summary patient is a 43-year-old female who presents to the emergency department for evaluation of right lower extremity laceration. Patient is medic ally stable upon arrival, and afebrile. Physical exam shows a 4 and half centimeter laceration to the distal anterior right lower tibia. There is no deformity. Wound is superficial and does not extend to the deeper structures. She is neurovascular intact distally. She does have continuous issues but no arterial bleeding. Differential diagnosis includes simple laceration versus possible open fracture of the tibia. Initial workup will be conducted with plain film x-ray. Iinitial workup reviewed by me and my informal read of her plain film chest x-ray shows no fracture of the tibia-fibula. Upon repeat evaluation ambulatory after laceration repair. Given this patient is appropriate for discharge with instructions for suture removal in 2 weeks given the anatomical location. I was consulted by the JAMEL, and we discussed the complexity of the problems being addressed. I approved the treatment and management plan for this patient?s care in the Emergency Department, thus performing a substantive portion of the medical decision making. Yoshi Archibald MD Procedures <REBEKAH Snider - Last Filed: 10/17/23 14:59> Laceration Laceration 1: Site: lower extremity Side (If applicable): right Size (cm): 5 Description: other (Semilunar) Depth: simple, single layer Local Anesthetic: lidocaine 1% Amount of anesthesia used (mL): 10 Pre-repair: wound explored, irrigated extensively and deep structures intact Skin layer closed with: nylon Size (cm): 3-0 Number of sutures: 7 Technique: simple, interrupted Critical Care <REBEKAH Snider - Last Filed: 10/17/23 14:59> Critical Care Time Critical Care Time: No
--- NOTE | 2023-10-17 14:06 | XR_ITS ---
FINAL REPORT CLINICAL HISTORY: right lundy lac with metal lid, r/o FB COMPARISON: None FINDINGS: 2 views of the right tibia/fibula were obtained. There is no acute fracture or dislocation. The joint spaces are intact. There is no soft tissue abnormality. There is no radiopaque foreign body identified. IMPRESSION: No acute bony abnormality. No radiopaque foreign body. Reviewed, Interpreted and Dictated by Barrington Vega MD Transcribed by Maria Ines Wilkins Authenticated and [facility]
[2023-10-17] MEDS: TET/DIPHTH/PERT-ADULT 0.5ML SYRINGE 0.5 ML IM (14:18)
[2023-10-17] MEDS: LIDOCAINE 1% 10ML MDV 10 ML SQ (14:29)
[2023-10-17 14:30] VITALS: BP 118/74; PULSE 103; RESP 20; O2SAT 95
[2023-10-17 15:00] VITALS: BP 110/69; PULSE 102; RESP 20; O2SAT 98
[2023-10-17 15:22] VITALS: BP 110/69; PULSE 84; RESP 15; TEMP 36.7
== END 2023-10-17 15:32 | disposition home or self-care (01) ==
PROVIDERS: Emergency Provider Emergency Medicine; PCP Internal Medicine
DX: S81.811A Laceration without foreign body, right lower leg, initial encounter (principal); F17.210 Nicotine dependence, cigarettes, uncomplicated; W26.8XXA Contact with other sharp object(s), not elsewhere classified, initial encounter; Y99.0 Civilian activity done for income or pay
CPT/HCPCS: 12002; 73590; 90471; 90715; 99283

== ENCOUNTER 2023-11-07 19:20 | Outpatient (CLI) | payer OTHER, SELFPAY | END 2023-11-07 23:59 | LOC: LAB.DROPOF 19:21 | PROVIDERS: PCP Internal Medicine; Visit Provider Internal Medicine | DX: M79.605 Pain in left leg (principal); S81.811A Laceration without foreign body, right lower leg, initial encounter; D72.819 Decreased white blood cell count, unspecified; B96.89 Other specified bacterial agents as the cause of diseases classified elsewhere | CPT/HCPCS: 87070; 87205 ==

== ENCOUNTER 2024-01-20 17:15 | Emergency (ER) | payer OTHER, SELFPAY ==
[2024-01-20 17:30] VITALS: BP 130/84; PULSE 85; RESP 20; TEMP 36.7; O2SAT 95; BMI 33.3
--- NOTE | 2024-01-20 17:43 | ED_ITS ---
Discharge Plan Disposition Patient Disposition: Home, Self-Care Condition: Good Prescriptions Prescriptions: New azithromycin 250 mg tablet 250 mg PO DIRECTED Qty: 6 0RF Rx Instructions: Take two (2) tablets on day #1, then one (1) tablet day #2 thru #5 No Action bisoprolol fumarate 5 mg tablet 5 mg PO DAILY Patient Comments: TAKE ONE TABLET BY MOUTH EVERY DAY FOR blood pressure AND heart clonidine HCl 0.2 mg tablet 0.2 mg PO HSP PRN (Reason: Sleep) Patient Comments: TAKE 1 TABLET BY MOUTH AT BEDTIME fluoxetine 10 mg capsule 10 mg PO DAILY Patient Comments: TAKE 1 CAPSULE BY MOUTH ONCE DAILY buprenorphine-naloxone 8-2 mg tablet, sublingual 1 tab SUBLINGUAL DAILY lorazepam 0.5 MG tablet 0.5 mg PO TIDP PRN (Reason: Anxiety) triamterene-hydrochlorothiazid 1 EACH tablet 1 each PO DAILY albuterol sulfate 90 MCG aerosol powdr breath activated 2 puff IH Q4HP PRN (Reason: Asthma) Referrals Follow up/Referrals: Geovanny Lincoln MD [Primary Care Provider] - See instructions Activity Restrictions/Add. Instructions Additional Instructions/Restrictions: Start antibiotic today. Be sure to complete entire prescription even if feeling better Tylenol and ibuprofen as needed for pain or fever Humidifier/vaporizer/hot steamy shower Follow-up with primary care tomorrow. Follow-up immediately in the ER of the [facility] for new or worsening symptoms or no noticeable improvement over the next 48-72 hours. Stop smoking Inhaler every 4-6 hours as needed. Should help open airways improved cough, wheezing, shortness of breath Clinical Impressions Clinical Impression: Acute bronchitis Instructions Patient Instructions: Acute Bronchitis Discharge ED Provider: Tyson ([facility])[place] [facility] [place] General Stated complaint: cough congestion Mode of Arrival: Ambulatory Source of Information: Patient Limitations: No Limitations Time Seen by Provider: 01/20/24 17:43 Description of Symptoms (Recalled from Triage Doc. by RN): Pt's symptoms are cough, and congestion. She was seen last week and got a steriod shot and has not gotten better. HEENT Symptoms (Recalled from RN notes): Yes Resp Symptoms (Recalled from RN notes): No Skin Symptoms (Recalled from RN notes): No MS Symptoms (Recalled from RN notes): No Functional Status (Recalled from RN notes): n/a History of Present Illness Provider Complaint: 43 yr old female presents for c/o cough, and congestion. She was seen last week and got a steriod shot and placed on antibiotics and has not gotten better. Related Data Home Medications Medication Instructions Recorded Confirmed albuterol sulfate 90 mcg/actuation 2 puff IH Q4HP PRN Asthma 02/19/21 01/20/24 breath activated powder inhaler lorazepam 0.5 mg tablet 0.5 mg PO TIDP PRN Anxiety 02/19/21 01/20/24 triamterene 37.5 1 each PO DAILY Hypertension 02/19/21 01/20/24 mg-hydrochlorothiazide 25 mg tablet bisoprolol fumarate 5 mg tablet 5 mg PO DAILY 10/04/21 01/20/24 clonidine HCl 0.2 mg tablet 0.2 mg PO HSP PRN Sleep 10/04/21 01/20/24 buprenorphine 8 mg-naloxone 2 mg 1 tab sublingual DAILY 06/12/23 01/20/24 sublingual tablet fluoxetine 10 mg capsule 10 mg PO DAILY 06/12/23 01/20/24 Previous Rx's Medication Instructions Recorded azithromycin 250 mg tablet 250 mg PO DIRECTED #6 tabs 01/20/24 Allergies Allergy/AdvReac Type Severity Reaction Status Date / Time cephalexin [From Keflex] Allergy Mild Verified 01/20/24 17:36 Worker's Comp Is this a Worker's Comp case?: No [facility] Disclaimer: The information contained in this section may have been updated after the patient was seen, as this information can be updated by other users. Medical History , [employer]) Anxiety HTN (hypertension) Obesity Tobacco abuse Leukocytosis Hypokalemia Abnormal imaging of thyroid Vertigo Otitis media Cellulitis of right foot Callus of foot Right foot pain Heel spur Abscess of right foot Acquired pes planus of both feet Foot pain Patient left without being seen Bandemia without diagnosis of specific infection Bradycardia Tobacco use Asthmatic bronchitis , chronic Labyrinthitis, acute Benign paroxysmal positional vertigo Intractable nausea and vomiting Seasonal allergies Acute sinusitis Cough Social History , [employer]) Smoking Status: Current every day smoker tobacco type: cigarettes packs per day: 1 alcohol intake: never substance use type: denies use current occupational status: employed Travel in the last 8 weeks: None ROS Obtained: Yes All systems reviewed & no additional complaints except as documented Constitutional Constitutional: Reports system reviewed and no additional complaints, except as documented Eyes Eyes: Reports system reviewed and no additional complaints, except as documented ENT Ears, Nose, Mouth, and Throat: Reports system reviewed and no additional comp laints, except as documented, Reports as per HPI, Reports nasal congestion, Reports nasal discharge, Reports sinus pain and Reports sinus pressure Cardiovascular Cardiovascular: Reports system reviewed and no additional complaints, except as documented Respiratory Respiratory: Reports system reviewed and no additional complaints, except as documented, Reports as per HPI and Reports cough Musculoskeletal Musculoskeletal: Reports system reviewed and no additional complaints, except as documented Integumentary/Breasts Skin/Breast: Reports system reviewed and no additional complaints, except as documented Neurologic Neurologic: Reports system reviewed and no additional complaints, except as documented Endocrine Endocrine: Reports system reviewed and no additional complaints, except as documented Hematologic/Lymphatic Henatologic/Lymphatic: Reports system reviewed and no additional complaints, except as documented Allergic/Immunologic Allergic/Immunologic: Reports system reviewed and no additional complaints, except as documented Physical Exam General General appearance: alert and in no apparent distress Head Head exam: atraumatic Eye Eye exam: Present normal appearance and PERRL ENT ENT exam: Present normal exam, normal oropharynx, mucous membranes moist and TM's normal bilaterally Respiratory Respiratory exam: Present wheezes Cardiovascular Cardiovascular exam: Present regular rate and normal rhythm Neurological Exam Neurological exam: Present alert and oriented X3 Skin Skin exam: Present warm and intact Medical Decision Making Medical Records Medical records reviewed: Yes I reviewed the patient's medical records. Jeremie Inquiry Pt receiving controlled substance: No Jeremie was queried for this patient: No Vital Signs: 01/20/24 17:30 Temperature 98.0 F Temperature Source Oral Pulse Rate [Right Radial] 85 Respiratory Rate 20 Blood Pressure [Right Arm] 130/84 Blood Pressure Mean [Right Arm] 99 Blood Pressure Source [Right Arm] Automatic Cuff Blood Pressure Position [Right Arm] Sitting 02 Sat by Pulse Oximetry 95 Oxygen Delivery Method Room Air
[2024-01-20 18:38] VITALS: BP 130/84; PULSE 85; RESP 20; TEMP 36.7; O2SAT 95
== END 2024-01-20 18:35 | disposition home or self-care (01) ==
PROVIDERS: Emergency Provider Nurse Practitioner Family; PCP Internal Medicine
DX: J20.9 Acute bronchitis, unspecified (principal); R09.81 Nasal congestion; F17.210 Nicotine dependence, cigarettes, uncomplicated
CPT/HCPCS: 99212; 99214; G0463

== ENCOUNTER 2024-12-17 14:37 | Outpatient (CLI) | payer OTHER, SELFPAY ==
[2024-12-17 13:38] LABS: Basophils # 0.1 K/mm3 (0-0.2); Basophils % 0.7 % (0.1-2.0); Eosinophils # 0.3 Kmm3 (0.0-0.4); Hemoglobin 15.8 g/dL (12.2-16.2); Lymphocytes # 3.9 K/mm3 (0.7-4.5); Lymphocytes % 25.6 % (10-50); Mean Corpuscular HGB Conc 32.2 g/dL (31.8-35.4); Mean Corpuscular Hemoglobin 28.9 pg (27.0-31.2); Mean Corpuscular Volume 89.7 fl (81-99); Mean Platelet Volume 9.2 fl (7.4-10.4); Monocytes # 1.3 K/mm3 (0.1-1.0); Monocytes % 8.2 % (1.7-9.3); Neutrophils # 9.4 K/mm3 (1.8-7.8); Neutrophils % 61.7 % (37.0-80.0); Nucleated Red Blood Cells # 0 10^3/uL; Nucleated Red Blood Cells % 0 %; Platelet Count 230 K/mm3 (142-424); Red Blood Count 5.46 M/mm3 (4.20-5.40); Red Cell Distribution Width 15.7 % (11.5-17.5); Red Cell Distribution Width-SD 51.7 fL; White Blood Count 15.2 K/mm3 (4.8-10.8)
[2024-12-17 14:35] LABS: Alanine Aminotransferase 65 U/L (12-78); Albumin Level 3.4 g/dl (3.5-5.0); Albumin/Globulin Ratio 1.1 (1.1-1.8); Alkaline Phosphatase 109 U/L (38-126); Anion Gap 11.2 mEq/L (5-15); Aspartate Amino Transferase 54 U/L (14-36); Bilirubin,Total 0.6 mg/dl (0.2-1.3); Blood Urea Nitrogen 15 mg/dl (7-17); Calcium 8.9 mg/dl (8.4-10.2); Carbon Dioxide 35 mmol/L (22.0-30.0); Chloride 94 mmol/L (98-107); Chol/HDL Ratio 2.5 (1-3.5); Cholesterol 130 mg/dl (140-200); Estimated Glomerular Filt Rate 133 ml/min (>60); GFR (African American) 161 ML/MIN (>60); Globulin 3.1 g/dL (1.3-3.2); Glucose 122 mg/dl (74-100); HDL Cholesterol 51 mg/dl (40-60); Potassium 3.2 mmoL/L (3.5-5.1); Sodium 137 mmol/L (136-145); Total Protein,Serum 6.5 g/dl (6.3-8.2); Triglycerides 126 mg/dl (30-150); VLDL Cholesterol 25 mg/dL (0-40)
--- NOTE | 2024-12-17 14:40 | XR_ITS ---
FINAL REPORT CLINICAL HISTORY: Right knee pain COMPARISON: None FINDINGS: AP, lateral and bilateral oblique views of the right knee were obtained. There is no prior exam for comparison. There is no acute osseous abnormality of the right knee. Mild degenerative joint disease is present. The soft tissues are normal. There is no joint effusion. IMPRESSION: Mild degenerative joint disease, with no acute osseous abnormality of the right knee. Reviewed, Interpreted and Dictated by Callie Morales MD Transcribed by Rosa Fleming Authenticated and [facility]
[2024-12-17 14:46] LABS: Direct LDL Cholesterol 56.37 mg/dL (100-129)
[2024-12-17 15:03] LABS: Thyroid Stimulating Hormone 2.83 uIU/mL (0.465-4.68)
== END 2024-12-17 23:59 | disposition home or self-care (01) ==
LOC: RAD 14:37
PROVIDERS: PCP Internal Medicine; Visit Provider Internal Medicine
DX: M17.11 Unilateral primary osteoarthritis, right knee (principal); M25.561 Pain in right knee; I10 Essential (primary) hypertension; R53.83 Other fatigue; E78.5 Hyperlipidemia, unspecified; F41.9 Anxiety disorder, unspecified; E66.9 Obesity, unspecified; Z68.39 Body mass index [BMI] 39.0-39.9, adult
CPT/HCPCS: 73562; 80053; 80061; 84443; 85025

== ENCOUNTER → 2025-02-14 20:16 | Outpatient (CLI) | payer OTHER, SELFPAY | LOC: SL 20:17 | PROVIDERS: PCP Internal Medicine; Visit Provider Specialist | DX: G47.33 Obstructive sleep apnea (adult) (pediatric) (principal); J44.9 Chronic obstructive pulmonary disease, unspecified; E66.9 Obesity, unspecified; I10 Essential (primary) hypertension; G47.36 Sleep related hypoventilation in conditions classified elsewhere | CPT/HCPCS: 95810 ==

== ENCOUNTER 2025-03-12 15:30 | Outpatient (CLI) | payer OTHER, SELFPAY | END 2025-03-12 23:59 | disposition home or self-care (01) | LOC: LAB.DROPOF 03-13 10:32 | PROVIDERS: PCP Internal Medicine; Visit Provider Internal Medicine | DX: R30.0 Dysuria (principal); R34 Anuria and oliguria; R82.90 Unspecified abnormal findings in urine | CPT/HCPCS: 87086; 87088; 87186 ==

== ENCOUNTER 2025-07-22 16:02 | Outpatient (CLI) | payer OTHER, SELFPAY | END 2025-07-22 23:59 | disposition home or self-care (01) | LOC: LAB.DROPOF 16:03 | PROVIDERS: PCP Internal Medicine; Visit Provider Internal Medicine | DX: N39.0 Urinary tract infection, site not specified (principal) | CPT/HCPCS: 87086; 87088; 87186 ==